=== PATIENT | female | born 1960 | race Caucasian/White ===

== ENCOUNTER 2024-11-09 06:34 | Day surgery (SDC) | payer BC, SELFPAY | END 2024-11-09 11:19 | disposition home or self-care (01) | LOC: GI 06:34 | PROVIDERS: ATTENDING PHYSICIAN Internal Medicine Gastroenterology | DX: K20.90 Esophagitis, unspecified without bleeding (principal); K31.7 Polyp of stomach and duodenum; R19.7 Diarrhea, unspecified | CPT/HCPCS: 43239; 88305; 88342 ==

== ENCOUNTER 2025-03-05 20:30 | Inpatient (IN) | payer BC, SELFPAY ==
[2025-03-05 14:03] VITALS: BP 117/68
[2025-03-05 14:30] LABS: Hematocrit 38.7 % (37.0-47.0); Hemoglobin 13.4 g/dL (12.0-16.0); Mean Corp Hgb Conc. 34.6 g/dL (33.0-37.0); Mean Corpuscular Volume 88.2 fL (81.0-99.0); Nucleated Red Blood Cells % 0 %; Platelet Count 140 10^3/uL (130-400); Red Cell Dist. Width 12.4 % (11.5-14.5)
[2025-03-05 14:36] LABS: ALT (SGPT) 36 U/L (0-35); AST (SGOT) 42 U/L (14-36); Albumin 4.1 g/dl (3.5-5.0); Alkaline Phosphatase 51 U/L (38-126); Blood Urea Nitrogen 7 mg/dl (7-17); Calcium 8.5 mg/dl (8.4-10.2); Carbon Dioxide 26 mmol/L (22-30); Chloride 100 mmol/L (98-107); Glucose 135 mg/dl (70-99); Lipase 74 U/L (23-300); Potassium 3.3 mmol/L (3.5-5.1); Sodium 132 mmol/L (135-145); Total Protein 6.4 g/dl (6.3-8.2); eGFR > 60.00
[2025-03-05 16:25] VITALS: BP 127/57; BMI 25.7
[2025-03-05] MEDS: ZOFRAN 4 MG IV (16:32)
[2025-03-05] MEDS: PROTONIX IV 40 MG IV (16:32)
[2025-03-05] MEDS: MORPHINE SULFATE 2 MG IV (16:33)
[2025-03-05] MEDS: NSS 1000 IV ×2 (16:33→21:55)
[2025-03-05 17:00] VITALS: BP 135/55
--- NOTE | 2025-03-05 17:09 | ED.GENMED ---
History of Present Illness
General
Chief Complaint: Abdominal Symptoms
Source: patient
Exam Limitations: none
Time Seen by Provider: 03/05/25 16:11
Nursing documentation reviewed up to this point in time: agreed with
History of Present Illness
History of Present Illness:
Patient diagnosed with influenza, via home test 2 days ago, presents ED secondary to worsening abdominal pain over the past 3 days along with 1 episode of nonbloody diarrhea as well as 1 episode of vomiting today. Patient reports decreased
appetite. Abdominal pain described as sharp, diffuse, without any alleviating or exacting factors. Patient's also tested positive for influenza. Denies recent travel. Patient's symptoms started with cough and congestion, as well as body
ache 5 days ago. Patient states that she had leftover Tamiflu at home, and took 1 dose yesterday, and is wondering whether or not Tamiflu may be contributing to her nausea and vomiting episode today
Review of Systems
Review of Systems
Allergies reviewed?: Yes
All Other Systems: ROS reviewed and negative except as documented in HPI and ROS
Constitutional: Reports no symptoms; Denies fever
EENT: Reports no symptoms
Respiratory: Reports cough; Denies trouble breathing
Cardiac: Reports no symptoms
ABD/GI: Reports abdominal pain, nausea, vomiting and diarrhea
Musculoskeletal: Reports no symptoms
Skin: Reports no symptoms
Neurological: Reports no symptoms
Phy Exam
Physical Exam
Physical Exam:
Physical Exam
General: mild painful distress, not acutely ill. afebrile
Head: nc/at. eomi
Neck: supple. normal range of motion
Heart: s1/s2 regular rate and rhythm
Lungs: no acute respiratory distress. clear bilaterally
Abdomen: normal bowel sounds. no distention. mild diffuse tenderness to palpation
Neuro: alert and oriented x 3. no focal neurological deficits
Skin: no rash
Psychiatric: well kept. interactive and cooperative
Extremities: no edema. no calf tenderness.
Course
Orders/Labs/Results
Orders:
Orders
03/05/25 14:10
Complete Blood Count/With Diff Urgent
Comprehensive Metabolic Panel Urgent
Lipase Urgent
03/05/25 16:20
0.9% Sodium Chloride 1000 ml [Nss] 1,000 ml IV BOLUS
Morphine Sulfate 2 mg IV NOW STA
Ondansetron Injectable [Zofran] 4 mg IV NOW STA
Pantoprazole [Protonix IV] 40 mg IV NOW STA
03/05/25 16:21
CT Abd/pelvis W Iv Cont Urgent
Comment:
Reason For Exam: LLQ pain
Morphine Sulfate 2 mg .ROUTE .STK-MED ONE
Ondansetron Injectable [Zofran] 4 mg .ROUTE .STK-MED ONE
Pantoprazole [Protonix IV] 40 mg .ROUTE .STK-MED ONE
03/05/25 17:08
Stool Culture Urgent
CHAPARRITA Source: Feces/Stool
Specimen Description:
03/05/25 17:36
Influenza A+B Rapid Molecular Urgent
CHAPARRITA Source: Nasal Swab
Specimen Description:
03/05/25 17:41
Ibuprofen [Motrin] 400 mg PO NOW STA
03/05/25 17:42
Ibuprofen [Motrin] 400 mg .ROUTE .STK-MED ONE
03/05/25 18:11
HYDROmorphone [Dilaudid] 0.5 mg IV NOW STA
Piperacillin/Tazo 3.375 Gram [Zosyn] 3.375 gram in 50 ml IV NOW
03/05/25 18:35
Admit/Transfer Patient As Directed
Co-Sign Provider:
Level of Care: Inpatient admission
Assign to:: Telemetry
Physician / Group: isha
Diagnosis: diverticulitis
Reason for Telemetry: Arrhythmia
Date to Stop Telemetry: 03/08/25
Time to Stop Telemetry: 11:00
Reason for Hospitalization: diverticulitis
influenza
Expected length of stay greater than two midnights?: Yes
ELOS- Estimated Length of Stay in days: 3
I certify the patient meets the requirements for IP care: Yes
PRN Pain Medication Management As Directed
May give lesser potent ordered pain med per pt: Yes
preference::
Protocol:: Medication orders for pain may be administered in a
manner that supports deferring to patient preference
when the pt is:
- Requesting an ordered lesser potent pain medication.
Least to most potent pain medications are defined
as: acetaminophen < NSAID < tramadol < opioids
(morphine, oxycodone, hydromorphone).
- Requesting a lesser dose of the same medication IF
ORDERED.
- Requesting a less intrusive route of administration
if both routes are prescribed by the provider (PO <
IV).
03/05/25 18:36
Code Status As Directed
Resuscitation Status: Full Code
03/05/25 19:00
0.9% Sodium Chloride 500 ml [Nss] 500 ml IV 100 mls/hr
03/05/25 19:02
EKG [Electrocardiogram (*1)] Stat
Reason for Study: QTc Monitoring
CR Chest - 2 Views Stat
Comment:
Reason For Exam: cough
03/05/25 19:45
Blood Culture Q30M
CHAPARRITA Source: Blood/Venous
Specimen Description:
03/05/25 20:45
0.9% Sodium Chloride 1000 ml [Nss] 1,000 ml IV 80 mls/hr
HYDROmorphone [Dilaudid] 0.5 mg IV Q4HPRN PRN
Ibuprofen [Motrin] 400 mg PO Q6HPRN PRN
Ondansetron Injectable [Zofran] 4 mg IV Q8HPRN PRN
Oseltamivir Phosphate [Tamiflu] 75 mg PO BID
Potassium Chloride 10% Elixir [KCl Elixir] 40 meq PO NOW STA
03/05/25 20:45
Consult Colorectal Surgery [ColoRectal Surgery Consult] Routine
Consulting Provider: Ceasar Price
Was physician already notified: Yes
Activity As Directed
Activity Level: As Tolerated
Pneumatic Compression Sleeves As Directed
Type: Knee high
Vital Signs As Directed
Frequency: Per unit guidelines
DX Deep Vein Thrombosis Video Routine
03/05/25 20:53
CLONAZepam [CLONAZepam ODT] 0.5 mg PO DAILYPRN PRN anxiety
03/05/25 22:00
Tizanidine [Zanaflex] 2 mg PO HS
cycloSPORINE [Restasis 0.05% Ophthalmic Emulsion] 1 drops BOTH EYES Q12H
03/05/25 23:07
Blood Culture Q30M
CHAPARRITA Source: Blood/Venous
Specimen Description:
03/06/25 00:00
Piperacillin/Tazo 3.375 Gram [Zosyn] 3.375 gram in 50 ml IV Q6H
03/06/25 Breakfast
NPO
Allow oral meds: Yes
Allow clear liquids: No
Complete Blood Count/No Diff IN AM
Comprehensive Metabolic Panel IN AM
03/06/25 08:00
Losartan [Cozaar] 25 mg PO DAILY
Olopatadine HCl 0.1% [Olopatadine 0.1% Ophthalmic Solution] See Dose Instructions OPHTH DAILY
Pantoprazole [Protonix IV] 40 mg IV DAILY
03/06/25 18:00
Rosuvastatin Calcium [Crestor] 20 mg PO QPM
03/07/25 06:00
Complete Blood Count/No Diff IN AM
Comprehensive Metabolic Panel IN AM
03/08/25 06:00
Complete Blood Count/No Diff IN AM
Comprehensive Metabolic Panel IN AM
03/08/25 11:00
DC Protocol for Telemetry ONCE
03/09/25 06:00
Complete Blood Count/No Diff IN AM
Comprehensive Metabolic Panel IN AM
Abnormal Lab Results
03/05/25
14:10
WBC 2.8 L 10^3/uL
(4.8-10.8)
Absolute Lymphs (auto) 0.3 L 10^3/uL
(1.2-3.4)
Neutrophils % 83.9 H %
(42.2-75.2)
Lymphocytes % 12.1 L %
(20.5-51.1)
Sodium 132 L mmol/L
(135-145)
Potassium 3.3 L mmol/L
(3.5-5.1)
Glucose 135 H mg/dl
(70-99)
AST 42 H U/L
(14-36)
ALT 36 H U/L
(0-35)
03/05/25 14:10
03/05/25 14:10
Vital Signs
Initial and Last Documented VS:
Initial Vital Signs
Temp Pulse Resp BP Pulse Ox
99.1 F 97 18 117/68 98
03/05/25 14:03 03/05/25 14:03 03/05/25 14:03 03/05/25 14:03 03/05/25 14:03
Last Documented Vital Signs
Temp Pulse Resp BP Pulse Ox
100.5 F H 103 14 112/59 94
03/05/25 22:45 03/05/25 22:45 03/05/25 22:45 03/05/25 22:45 03/05/25 22:45
MDM/Problems Addressed
MDM/Problems Addressed:
Influenza positive.
CT abdomen pelvis report reviewed and discussed with patient, as well as on-call colorectal surgery, Dr. Price.
Patient will be admitted for further evaluation and treatment, including IV antibiotics and pain control.
*Pulse Oximetry
SaO2: 98
Oxygen Mode of Delivery: Room air
Patient hypoxic: no
*Critical Care Note
Total Time (30-74mins, 75-104mins- exclusive of procedures): Not Applicable
ED Attending Note
-
Portions of this chart may have been created with voice recognition software.� Occasional wrong word or��sound alike� substitutions may have occurred due to the inherent limitations of voice recognition software.
Discharge Plan
Departure
Patient Disposition: Admit
Date of Disposition: 03/05/25
Time of Disposition: 18:15
Admit to: IMU
Presentation/result/management discussed w/ accepting MD/DO: Hospitalist
Discharge Problem:
Diverticulitis of colon with perforation
Interventions
Interventions:
*Risk Screen - Suicide Last Done: 03/05/25 22:03
*General Assessment Last Done: 03/05/25 16:25
*Neglect/Abuse Screening Last Done: 03/05/25 16:25
*ED COVID-19 Vaccine History Last Done: 03/05/25 22:03
*ED Influenza Vaccine History Last Done: 03/05/25 16:25
[facility] Fall Risk Assessment Tool Last Done: 03/05/25 16:25
*Nursing Disposition Last Done: 03/05/25 20:35
DC-[id number] Assessment Last Done: 03/05/25 16:25
[2025-03-05] MEDS: MOTRIN 400 MG PO ×2 (17:43→22:42)
--- NOTE | 2025-03-05 18:14 | HPS.HSE ---
Addendum entered and electronically signed by Sharath Fuller MD 03/05/25 19:12:
This is an addendum to H&P written by Jazmin Butt on 03/05/2025. �Patient seen and examined independently with RECEIVING AND PROCESSING SUPERVISOR.
64-year-old female past medical history of hyperlipidemia, hypertension, interstitial cystitis, dry eyes, anxiety, presenting with cough, congestion, body aches for 4 days. �Diagnosed with influenza 2 days ago by home test. �Started Tamiflu
yesterday.
For past 3 days with left lower quadrant abdominal pain. �Multiple episodes of soft loose stools, and single vomiting
Vital signs show temperature of 103, tachycardia.
Labs show leukopenia 2.8. �Potassium 3.3. �Mild transaminitis.
CT abdomen pelvis shows acute sigmoid diverticulitis with evidence of microperforation.
Patient with perforated acute sigmoid diverticulitis. �N.p.o., IV fluids, check blood cultures, Zosyn. �Colorectal surgery consulted.
Patient with influenza infection. �Tamiflu.
Original Note:
Family Physician
-
Family Physician: Angelita Mcconnell MD
Chief Complaint
-
fever
left lower quadrant pain
History of Present Illness
64 year old with PMH for HLD, HTn, interstitial cystitis presented to us with chills, cough,congestion since Saturday. patient complained of generalized body ache. she had headache and was dizzy. yesterday she tested positive for Flu and took one
Tamiflu. for past the days, she noticed left lower quadrant pain for past three day. she had multiple episodes of loose stool.She vomited once today. Estimates she had a temp of 103.1. Patient denied dysuria hematuria. Patient denied any chest
pain or short of breath.
CT with the impression of acute sigmoid diverticulitis with evidence of perforation.
Patient received fluids, Dilaudid, Zofran, Zosyn in ER. Admitting for further management
Medical History
Past Medical History
Past Medical History: Reports Other
Additional Past Medical History:
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
Past Surgical History: Reports Other
Additional Past Surgical History:
Cystoscopy, salpingectomy and right ovarian cystectomy, bilateral bunionectomy
Social History
Tobacco: Non-smoker
Alcohol: None
Drug: None
Personal:
Living: With Family
Family History
Family History: Not pertinent
Allergies / Home Medications
Allergies reflects when Allergies were last updated in [email or web address].
Home Medications with original date entered in [email or web address]
Allergy/Medication List:
Allergies
Allergy/AdvReac Type Severity Reaction Status Date / Time
Egg Derived Allergy Sneezing Verified 03/05/25 14:03
Home Medications
Calcium + D 1,200 mg PO DAILY 03/27/22
Premarin 0.5 % vaginal MOTH 03/27/22
acetaminophen 500 mg capsule 500 - 1,000 mg PO PRN PRN pain 03/27/22
cholecalciferol (vitamin D3) 125 mcg (5,000 unit) tablet (Vitamin D3) 125 mcg PO DAILY 03/27/22
clonazepam 0.25 mg disintegrating tablet 0.25 - 0.5 mg PO PRN PRN anxiety 03/27/22
cyclosporine 0.05 % eye drops in a dropperette (Restasis) 1 drp BOTH EYES Q12H 03/27/22
famotidine 10 mg tablet (Pepcid AC) 10 mg PO PRN PRN GERD 03/27/22
ibuprofen 200 mg capsule (Motrin IB) 200 - 400 mg PO PRN PRN pain 03/27/22
olopatadine 0.2 % eye drops 1 drp BOTH EYES DAILY 03/27/22
rosuvastatin 20 mg tablet (Crestor) 20 mg PO QPM 03/27/22
tizanidine 2 mg tablet 2 mg PO HS 03/27/22
zoledronic acid 5 mg/100 mL in mannitol 5 %-water intravenous piggybck (Reclast) 5 mg IV ONCE 03/27/22
Review of Systems
-
Constitutional: Reports Fever, Fatigue and Chills
EENT: Reports No Symptoms
Respiratory: Reports Cough
Cardiac: Reports No Symptoms
Abdomen/GI: Reports Abdominal Pain, Nausea, Vomiting and Diarrhea
: Reports No Symptoms
Musculoskeletal: Reports No Symptoms
Skin: Reports No Symptoms
Neurological: Reports No Symptoms
Endocrine: Reports No Symptoms
Hematologic/Lymphatic: Reports No Symptoms
Psych: Reports No Symptoms
Physical Exam
Vital Signs
Vital Signs
Temp Pulse Resp BP Pulse Ox
103.2 F H 115 16 135/55 96
03/05/25 17:30 03/05/25 17:30 03/05/25 17:00 03/05/25 17:00 03/05/25 17:33
Physical Exam
General: Well Developed, Well Nourished and No Apparent Distress
HEENT: NormoCephalic, Moist mucous membranes and Atraumatic
Respiratory: Clear
Cardiac: S1/S2 and Regular Rhythm; No Murmur or Rub
GI: Soft, Non Tender, Non Distended and Normal Bowel Sounds; No Organomegaly
Rectal: Deferred by Provider
Musculoskeletal: No Clubbing, No Cyanosis and No Edema
Skin: No Rash
Neuro: AO x 3 and Nonfocal/grossly intact
Psych: Calm
Laboratory Results
-
03/05/25 14:10
03/05/25 14:10
Laboratory Results
Total Bilirubin 0.6 mg/dl (0.2-1.3) 03/05/25 14:10
AST 42 U/L (14-36) H 03/05/25 14:10
ALT 36 U/L (0-35) H 03/05/25 14:10
Alkaline Phosphatase 51 U/L (38-126) 03/05/25 14:10
Lipase 74 U/L (23-300) 03/05/25 14:10
Data Reviewed
-
CT Scan: Report Reviewed by me
Lab Data: Labs Reviewed by me
Impression/Plan
-
#Influenza
-TamiFlu continued
-Motrin prn for fever and pain
-obtain chest x ray
#Sigmoid diverticulitis with microperforation
- Keep patient n.p.o.
- Fluids continued for hydration
- IV Zosyn
- Dilaudid as needed for pain
-zofran prn for n/v
- Colorectal consulted
-CT abdomen pelvis with acute sigmoid diverticulitis with evidence of perforation (small amount of free air). However, no focal collection or abscess identified at this time.9 mm common bile duct. Likely physiologic. Recommend correlation with liver
function tests.
#Hyponatremia /Hypokalemia secondary to vomiting and diarrhea
- Sodium 132
-K3.3
- Fluids continued, oral KCl
- BMP in the morning
#HLD
-Crestor and Zetia continued
#essential HTN
-losartan continued with hold parameter
#interstitial cystitis
-tizanidine continued
#DVT prophylaxis
-scd
#CODE status
-full code
--- NOTE | 2025-03-05 18:18 | EDRN ---
Pt OOB to BR at this time.
[2025-03-05 18:23] VITALS: BP 107/58
--- NOTE | 2025-03-05 18:23 | EDRN ---
Jazmin Butt NP in room w/ pt. Pt back from BR at this time. Pt told she is NPO at this time.
[2025-03-05] MEDS: DILAUDID 0.5 MG IV (18:38)
[2025-03-05] MEDS: ZOSYN 50 IV (18:39)
[2025-03-05 20:45] VITALS: BP 121/64; BMI 25.3
--- NOTE | 2025-03-05 20:45 | PTCARENOTE ---
Pt arrived to room 427-01. Pt ambulated from stretcher to bed. Pt AAOx3, VSS. Pt oriented to room, call alvarez placed within reach.
[2025-03-05] MEDS: RESTASIS 0.05% OPHTHALMIC EMULSION 1 DROPS BOTH EYES (21:55)
[2025-03-05] MEDS: ZANAFLEX 2 MG PO (21:55)
[2025-03-05] MEDS: TAMIFLU 75 MG PO (21:55)
[2025-03-05] MEDS: KCL ELIXIR 40 MEQ PO (22:41)
[2025-03-05 22:45] VITALS: BP 112/59
[2025-03-06] MEDS: ZOSYN 50 IV ×5 (00:35→23:42)
[2025-03-06] MEDS: DILAUDID 0.5 MG IV ×4 (02:16→22:18)
[2025-03-06 02:27] VITALS: BP 92/51
[2025-03-06 08:13] VITALS: BP 103/59
[2025-03-06 08:15] LABS: Hematocrit 32.9 % (37.0-47.0); Hemoglobin 11.2 g/dL (12.0-16.0); Mean Corp Hgb Conc. 34.0 g/dL (33.0-37.0); Mean Corpuscular Volume 88.4 fL (81.0-99.0); Platelet Count 120 10^3/uL (130-400); Red Cell Dist. Width 12.8 % (11.5-14.5)
[2025-03-06] MEDS: TAMIFLU 75 MG PO ×2 (08:32→19:55)
[2025-03-06] MEDS: NSS 1000 IV ×2 (08:32→23:44)
[2025-03-06] MEDS: COZAAR PO ×2 (08:32→10:28)
[2025-03-06 08:33] LABS: ALT (SGPT) 24 U/L (0-35); AST (SGOT) 28 U/L (14-36); Albumin 3.2 g/dl (3.5-5.0); Alkaline Phosphatase 38 U/L (38-126); Blood Urea Nitrogen 9 mg/dl (7-17); Calcium 7.9 mg/dl (8.4-10.2); Carbon Dioxide 23 mmol/L (22-30); Chloride 104 mmol/L (98-107); Estimated Creatinine Clearance 59 ml/min; Glucose 93 mg/dl (70-99); Potassium 3.5 mmol/L (3.5-5.1); Sodium 133 mmol/L (135-145); Total Protein 5.4 g/dl (6.3-8.2); eGFR > 60.00
[2025-03-06] MEDS: PROTONIX IV 40 MG IV (08:33)
[2025-03-06] MEDS: NSS (PRESERVATIVE FREE) 10 ML IV (08:33)
[2025-03-06] MEDS: OLOPATADINE 0.1% OPHTHALMIC SOLUTION 1 DROP OPHTH (08:33)
--- NOTE | 2025-03-06 09:54 | CON.CRS ---
Consultation
-
Date/Time Consultation Requested: 03/05/252044
Date/Time Consultation Performed: 03/06/25 0845
Requesting Provider: Daquan
Performing Provider: Katherine Price
Medical History
-
Chief Complaint: abdominal pain
History of Present Illness:
Ms Cotter is a 64 yo female with a h/o HTN, IC and prior lap salpingo-oophorectomy for benign mass who presents with persistent and worsening pelvic pain. Her was recently ill with the flu and she notes that she began having flu symptoms
(runny notes, cought) about 3-4 days ago. She tested positive at an outpatient facility and was started on Tamiflu (did receive flu vaccine this year). Around the onset of her flu symptoms, she also noted mild lower abdominal pain with intermittent
diarrhea. Abdominal pain continued to worsen even as her flu symptoms resolved causing her to present for evaluation. She was febrile to 103.2 yesterday and has has intermittent fevers since presentation. Significant lower abdominal tenderness is
present with less severe upper abdominal tenderness. She denies nausea or vomiting. She denies prior episodes of diverticulitis but does note that her last colonoscopy approximately 3 years ago demonstrated diverticular disease.
Past Medical History
Past Medical History: GERD, HTN, Hypercholesterolemia, Psychiatric (anxiety) and Other (IC)
Past Surgical History: Gynecological (lap left salpingo-oophorectomy (benign mass)), Orthopedic (Lumbar fusion, bunions) and Other (Colonoscopy approx 3 years ago, Endoscopy 2024 with bx of gastric polyps)
Social History
Tobacco: Non-Smoker
Alcohol: None
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
Family History
Family History: Reviewed & Not Pertinent
Allergies / Home Medications
Allergy/AdvReac Type Severity Reaction Status Date / Time
Egg Derived Allergy Sneezing Verified 03/05/25 14:03
�Medication �Instructions �Recorded �Confirmed �Type
calcium 500 mg (as 1 tab PO DAILY Supplement 03/27/22 03/05/25 History
carbonate)-vitamin D3 10 mcg (400
unit) tablet (Calcium 500 + D)
clonazepam 0.25 mg disintegrating 0.5 mg PO DAILYPRN PRN anxiety 03/27/22 03/05/25 History
tablet
conjugated estrogens 0.625 mg/gram 1 applic vaginal TUFR 03/27/22 03/05/25 History
vaginal cream (Premarin)
cyclosporine 0.05 % eye drops in a 1 drp BOTH EYES Q12H Eye Condition 03/27/22 03/05/25 History
dropperette (Restasis)
famotidine 10 mg tablet (Pepcid AC) 10 mg PO DAILYPRN PRN GERD 03/27/22 03/05/25 History
ibuprofen 200 mg capsule (Motrin 400 mg PO Q6HPRN PRN mild pain 03/27/22 03/05/25 History
IB)
olopatadine 0.2 % eye drops 1 drp BOTH EYES DAILY Eye Condition 03/27/22 03/05/25 History
rosuvastatin 20 mg tablet (Crestor) 20 mg PO QPM High Cholesterol 03/27/22 03/05/25 History
tizanidine 2 mg tablet 2 mg PO HS Muscle Spasms 03/27/22 03/05/25 History
dextromethorphan-guaifenesin 10 10 ml PO Q12H Cough 03/05/25 03/05/25 History
mg-100 mg/5 mL oral syrup
losartan 25 mg tablet 25 mg PO DAILY Blood Pressure 03/05/25 03/05/25 History
oseltamivir 75 mg capsule (Tamiflu) 75 mg PO BID Infection 03/05/25 03/05/25 History
Review of Systems
-
History Source: Patient
All other systems: Negative unless noted
A 10 point review of systems was completed, and was negative except as per HPI.
Physical Exam
Vital Signs
Temp 99.9 F 03/06/25 08:13
Pulse 98 03/06/25 08:13
Resp Rate 20 03/06/25 08:13
Blood pressure 103/59 03/06/25 08:13
SaO2 92 03/06/25 08:13
03/05/25 03/06/25 03/07/25
06:59 06:59 06:59
Actual Weight 58.74 kg
Body Mass Index (BMI) 25.3
Lab Results / Allergies
03/06/25 07:29
03/06/25 07:29
WBC 5.4 10^3/uL (4.8-10.8) 03/06/25 07:29
Hgb 11.2 g/dL (12.0-16.0) L 03/06/25 07:29
Hct 32.9 % (37.0-47.0) L 03/06/25 07:29
Plt Count 120 10^3/uL (130-400) L 03/06/25 07:29
Abs Immat Gran (auto) 0.0 10^3/uL (0-0.05) 03/05/25 14:10
Neutrophils % 83.9 % (42.2-75.2) H 03/05/25 14:10
Allergy/AdvReac Type Severity Reaction Status Date / Time
Egg Derived Allergy Sneezing Verified 03/05/25 14:03
Physical Exam
General: Well Developed and Well Nourished
HEENT: Normocephalic and Moist Mucous Membranes
Respiratory: Non Labored Respirations
GI: Soft, Non Distended and Tender (diffuse but worse to the lower abdomen)
Skin: Warm and Dry
Neuro: Awake, Alert and AO x 3
Psych: Calm
Data Reviewed
-
CT Scan: Image Personally Visualized and interpreted, Report Reviewed by me, Discussed with Physician, Discussed with Nurse and Discussed with Patient
Labs: Labs Reviewed by me, Discussed with Physician, Discussed with Nurse and Discussed with Patient
Old Records: Reviewed
Assessment / Plan
-
Ms Cotter is a 64 yo female with a h/o HTN, IC, and prior lap salpingo-oophorectomy for benign mass with recently flu A+ as OP on tamiflu who presents with persistent and worsening pelvic pain and fevers. CT imaging reviewed and consistent with
sigmoid diverticulitis with small amount of pneumoperitoneum consistent with small perforation. No collection/abscess present. Significantly tender on exam but otherwise stable. Fevers overnight, but none this am. BP soft low but stable, no
tachycardia. WBC low on presentation, now normalized. LFT's normal. Blood cx pending. She is up to date on her colonoscopy. Discussed operative vs nonoperative management with pt. Surgical management would likely entail diverting colostomy in the
emergency setting. As she remains stable, opting for nonoperative management to start.
Plan:
Will follow closely with bowel rest and IV abx with supportive measures
NPO except meds for bowel rest
C/W IV zosyn
Follow labs/exams
IVF as per primary team
Analgesics/Antipyretics
Hold antihypertensives
No surgery planned at this time, but if her condition were to worsen may need surgery this admission
[2025-03-06] MEDS: RESTASIS 0.05% OPHTHALMIC EMULSION 1 DROPS BOTH EYES ×2 (11:06→21:27)
[2025-03-06 11:49] VITALS: BP 114/67
--- NOTE | 2025-03-06 13:06 | W.PN.HOSP.TC ---
Today's Communication/Plan
-
Strict NPO.
Continue IV Zosyn.
IV fluid.
Pain and nausea control
Assessment / Plan
Assessment / Plan
Impression:
64-year-old female with history of hyperlipidemia, hypertension, and interstitial cystitis presented with chills, cough, congestion, generalized body aches, headache, and dizziness since Saturday. Tested positive for influenza 03/05 and started
Tamiflu. Reports left lower quadrant pain for 3 days, multiple episodes of loose stool, and one episode of vomiting day of admit. Estimated fever up to 103.1�F. Denies chest pain, shortness of breath, dysuria, or hematuria.
Imaging:
CT abdomen/pelvis shows acute sigmoid diverticulitis with evidence of microperforation (small free air), no abscess.
ED Management:
Received IV fluids, Zosyn, Dilaudid, and Zofran. Admitted for further management.
Patient admitted under hospitalist service, seen by colorectal surgery who recommended to continue n.p.o.
Continue antibiotic
Assessment/plan:
Sigmoid diverticulitis with microperforation
CT abdomen/pelvis shows acute sigmoid diverticulitis with evidence of perforation (small amount of free air). No focal collection or abscess identified. 9 mm common bile duct likely physiologic; recommend correlation with liver function tests (LFTs
including alk phos are normal)
Colorectal surgery consulted, keep patient NPO
Continue IV fluids for hydration
IV Zosyn
Dilaudid as needed for pain
Zofran as needed for nausea/vomiting
Colorectal surgery consulted
Influenza A
Continue Tamiflu
Motrin as needed for fever and pain
Obtain chest X-ray:
Pneumoperitoneum with air under the right diaphragm.
Mild bibasilar atelectasis.
Hyponatremia / Hypokalemia secondary to vomiting and diarrhea
Initial sodium: 132
Initial potassium: 3.3
Continue IV fluids, potassium repleted and improved
Repeat BMP in the morning
Hyperlipidemia
Continue Crestor and Zetia
Essential Hypertension
Continue losartan with hold parameters
Interstitial Cystitis
Continue tizanidine
CODE STATUS: Full code
DVT prophylaxis: SCDs
Diet: NPO
Disposition: Strict NPO.
Continue IV Zosyn.
IV fluid.
Pain and nausea control
Total time spent on today's encounter was 65 minutes which included time spent in counseling the patient/family regarding diagnosis and treatment plan as listed above, goals of care, and symptom management. Case was discussed with nursing staff,
specialists, and care coordinators/case management. All labs and imaging personally reviewed by me. Remainder the time spent in detailed review of previous records, lab data, imaging, and other medical provider documentation.
Anticipated Discharge: > 48 hours
Subjective/Interval History
-
Date of Service: March 06, 2025
Patient seen and examined at bedside, denies any chest pain or shortness of breath, still with diffuse abdominal pain, seen by surgery advised n.p.o.
Objective Data
-
Labs:
Laboratory Results
03/06/25
07:29
WBC 5.4
Hgb 11.2 L
Hct 32.9 L
Plt Count 120 L
Sodium 133 L
Potassium 3.5
Chloride 104
Carbon Dioxide 23
BUN 9
Creatinine 0.7
Glucose 93
Calcium 7.9 L
Total Bilirubin 0.7
AST 28
ALT 24
Alkaline Phosphatase 38
Vital Signs:
Vital Signs
Temp Pulse Resp BP Pulse Ox
98.0 F 111 18 114/67 90
03/06/25 11:49 03/06/25 11:49 03/06/25 11:49 03/06/25 11:49 03/06/25 11:49
Physical Exam
-
General: Well Developed, Well Nourished, No Apparent Distress and Comfortable
HEENT: Normocephalic, Atraumatic, Moist Mucous Membranes, No Ptosis, PERRLA and Nose Appears Normal
Respiratory: Rales, Rhonchi and Non Labored Respirations
Cardiac: Regular Rhythm and S1/S2
Breast: Deferred by me
GI: Soft and Tender
Genito-urinary: No Costovertebral Tender
Musculoskeletal: No Clubbing, No Cyanosis and No Edema
Skin: Warm
Neuro: Awake, Alert, Oriented, AO x 3 and No Motor Deficits
Psych: Calm
Data Reviewed
-
Diagnostic Radiology: Image personally visualized and interpreted and Report Reviewed by me
CT Scan: Image personally visualized and interpreted and Report Reviewed by me
Ultrasound: Image personally visualized and interpreted and Report Reviewed by me
MRI: Image personally visualized and interpreted and Report Reviewed by me
Medical Tests (Nuc Med, Echo etc): Image personally visualized and interpreted and Report Reviewed by me
Labs: Labs Reviewed by me
Old Records: Reviewed
--- NOTE | 2025-03-06 13:25 | CM ---
CM reviewed chart, patient seen bedside with , initial assessment completed.
Patient is a 64 year old with PMH for HLD, HTn, interstitial cystitis presented to us with chills, cough,congestion since Saturday.
Patient resides with her in a two level home, two steps to enter, bedroom on second floor.
Patient is independent with ADLs/IADLs, denies VN/SNF.
Pt reports having crutches, walker, and wheelchair in the home from previous surgery.
PCP Angelita Gonzalez, Pharmacy [facility], confirms prescription coverage.
Patient denies insecurities at home.
CM will continue to follow.
Plan; home with likely
[2025-03-06] MEDS: TORADOL 15 MG IV (14:27)
[2025-03-06] MEDS: TYLENOL 1000 MG PO (15:35)
[2025-03-06 15:53] VITALS: BP 123/69
[2025-03-06] MEDS: CRESTOR 20 MG PO (17:06)
[2025-03-06 19:38] VITALS: BP 112/71
[2025-03-06] MEDS: TUMS CHEWABLE TABLET 200 MG PO ×2 (20:32→22:33)
[2025-03-06] MEDS: ZETIA 10 MG PO (21:27)
[2025-03-06] MEDS: ZANAFLEX 2 MG PO (21:27)
[2025-03-06] MEDS: ZOFRAN 4 MG IV (22:33)
[2025-03-06 23:07] VITALS: BP 108/58
[2025-03-07] MEDS: DILAUDID 0.5 MG IV ×5 (03:19→22:17)
[2025-03-07 03:23] VITALS: BP 116/56
[2025-03-07] MEDS: ZOSYN 50 IV ×4 (05:56→23:44)
[2025-03-07 06:00] VITALS: BMI 26.1
[2025-03-07] MEDS: TYLENOL 1000 MG PO ×2 (06:37→19:45)
[2025-03-07 07:01] VITALS: BP 139/71
[2025-03-07] MEDS: TAMIFLU 75 MG PO ×2 (07:53→19:25)
[2025-03-07] MEDS: OLOPATADINE 0.1% OPHTHALMIC SOLUTION 1 DROP OPHTH (07:53)
[2025-03-07] MEDS: NSS (PRESERVATIVE FREE) 10 ML IV (07:55)
[2025-03-07] MEDS: PROTONIX IV 40 MG IV (07:55)
[2025-03-07 08:25] LABS: Hematocrit 32.5 % (37.0-47.0); Hemoglobin 11.1 g/dL (12.0-16.0); Mean Corp Hgb Conc. 34.2 g/dL (33.0-37.0); Mean Corpuscular Volume 86.2 fL (81.0-99.0); Platelet Count 149 10^3/uL (130-400); Red Cell Dist. Width 12.9 % (11.5-14.5)
[2025-03-07 08:37] LABS: ALT (SGPT) 22 U/L (0-35); AST (SGOT) 36 U/L (14-36); Albumin 3.1 g/dl (3.5-5.0); Alkaline Phosphatase 46 U/L (38-126); Blood Urea Nitrogen 13 mg/dl (7-17); Calcium 8.6 mg/dl (8.4-10.2); Carbon Dioxide 20 mmol/L (22-30); Chloride 103 mmol/L (98-107); Estimated Creatinine Clearance 59 ml/min; Glucose 87 mg/dl (70-99); Potassium 3.1 mmol/L (3.5-5.1); Sodium 133 mmol/L (135-145); Total Protein 5.4 g/dl (6.3-8.2); eGFR > 60.00
[2025-03-07] MEDS: KCL 260 MEQ IV (09:51)
[2025-03-07] MEDS: NSS 1000 IV ×2 (09:52→23:44)
[2025-03-07] MEDS: RESTASIS 0.05% OPHTHALMIC EMULSION 1 DROPS BOTH EYES ×2 (09:53→22:15)
--- NOTE | 2025-03-07 10:14 | W.PN.GS2 ---
Today's Communication / Plan
-
Trial of clears.
Serial abdominal exams.
CT scan tomorrow.
Assessment / Plan
-
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
flu positive.
Afebrile, tachycardic. Pain improving
Will continue nonoperative management for now, with antibiotics.
Will follow with serial abdominal exams.
Low threshold for operative exploration if she worsens clinically.
Patient is interested in a trial of diet, will start with clear liquids today.
Continue antibiotics
Plan for CT abdomen pelvis with p.o./iv contrast tomorrow
Time Spent
Total Time Spent with Patient (in minutes): 20
Subjective Data
-
Date of Service: March 07, 2025
Interval Events:
No acute events overnight. Slept well. Pain Controlled and improved. Denies Nausea/Vomiting, +bowel function. Hungry
Objective Data
-
Intake and Output
03/06/25 03/07/25 03/08/25
06:59 06:59 06:59
Other:
Number of approximated MODERATE 2 3
amounts of urine
Vital Signs
Temp Pulse Resp BP Pulse Ox
98.7 F 112 18 139/71 92
03/07/25 07:01 03/07/25 07:01 03/07/25 07:01 03/07/25 07:01 03/07/25 07:01
Lab Results
03/07/25 07:29
03/07/25 07:29
Calcium 8.6 mg/dl (8.4-10.2) 03/07/25 07:29
Total Bilirubin 1.1 mg/dl (0.2-1.3) 03/07/25:
AST 36 U/L (14-36) 03/07/25:
ALT 22 U/L (0-35) 03/07/25:
Alkaline Phosphatase 46 U/L (38-126) 03/07/25:
Total Protein 5.4 g/dl (6.3-8.2) L 03/07/25:
Albumin 3.1 g/dl (3.5-5.0) L 03/07/25:
Physical Exam
-
GENERAL/NEURO: Awake, Alert, no distress
CHEST: Unlabored breathing on RA
ABDOMEN: Soft, tender to palpation, worse in the left lower quadrant. Mildly distended.
Patient has a soria catheter: No
Patient has a central line: No
[2025-03-07 11:20] VITALS: BP 114/64
--- NOTE | 2025-03-07 12:13 | W.PN.HOSP.TC ---
Today's Communication/Plan
-
Pain control
Continue IV Zosyn.
IV fluid.
DuoNebs.
CT abdomen pelvis with IV and oral contrast in a.m.
Assessment / Plan
Assessment / Plan
Impression:
64-year-old female with history of hyperlipidemia, hypertension, and interstitial cystitis presented with chills, cough, congestion, generalized body aches, headache, and dizziness since Saturday. Tested positive for influenza 03/05 and started
Tamiflu. Reports left lower quadrant pain for 3 days, multiple episodes of loose stool, and one episode of vomiting day of admit. Estimated fever up to 103.1�F. Denies chest pain, shortness of breath, dysuria, or hematuria.
Imaging:
CT abdomen/pelvis shows acute sigmoid diverticulitis with evidence of microperforation (small free air), no abscess.
ED Management:
Received IV fluids, Zosyn, Dilaudid, and Zofran. Admitted for further management.
Patient admitted under hospitalist service, seen by colorectal surgery who recommended to continue n.p.o.
Continue antibiotic
Trial of clears, still with severe pain, repeat CT abdomen pelvis in am
Assessment/plan:
Sigmoid diverticulitis with microperforation
CT abdomen/pelvis shows acute sigmoid diverticulitis with evidence of perforation (small amount of free air). No focal collection or abscess identified. 9 mm common bile duct likely physiologic; recommend correlation with liver function tests (LFTs
including alk phos are normal)
Colorectal surgery consulted, keep patient NPO
Continue IV fluids for hydration
IV Zosyn
Dilaudid as needed for pain
Zofran as needed for nausea/vomiting
Colorectal surgery consulted
03/07
Trial of clears, still with severe pain, repeat CT abdomen pelvis in am
Acute hypoxic respiratory failure (nocturnal hypoxia)/ Influenza A
Continue Tamiflu
Motrin as needed for fever and pain
chest X-ray:
Pneumoperitoneum with air under the right diaphragm.
Mild bibasilar atelectasis.
03/07
Patient dropped oxygen level to 86-87% at night required 2 L of oxygen.
Ordered DuoNebs
Hyponatremia / Hypokalemia secondary to vomiting and diarrhea
Initial sodium: 132
Initial potassium: 3.3
Continue IV fluids, continue to replace potassium and monitor.
Repeat BMP in the morning
Hyperlipidemia
Continue Crestor and Zetia
Essential Hypertension
Continue losartan with hold parameters
Interstitial Cystitis
Continue tizanidine
CODE STATUS: Full code
DVT prophylaxis: SCDs
Diet: Started on clear
Disposition: Pain control
Continue IV Zosyn.
IV fluid.
DuoNebs.
CT abdomen pelvis with IV and oral contrast in a.m.
Total time spent on today's encounter was 65 minutes which included time spent in counseling the patient/family regarding diagnosis and treatment plan as listed above, goals of care, and symptom management. Case was discussed with nursing staff,
specialists, and care coordinators/case management. All labs and imaging personally reviewed by me. Remainder the time spent in detailed review of previous records, lab data, imaging, and other medical provider documentation.
Anticipated Discharge: > 48 hours
Subjective/Interval History
-
Date of Service: March 07, 2025
Patient was started on clear liquids but still complaining of severe abdominal pain, also overnight patient dropped oxygen level to 86/87% while sleeping, placed on 2 L of oxygen.
Ordered DuoNebs
Objective Data
-
Labs:
Laboratory Results
03/07/25
07:29
WBC 7.0
Hgb 11.1 L
Hct 32.5 L
Plt Count 149 D
Sodium 133 L
Potassium 3.1 L
Chloride 103
Carbon Dioxide 20 L
BUN 13
Creatinine 0.8
Glucose 87
Calcium 8.6
Total Bilirubin 1.1
AST 36
ALT 22
Alkaline Phosphatase 46
Vital Signs:
Vital Signs
Temp Pulse Resp BP Pulse Ox
98.8 F 102 20 114/64 92
03/07/25 11:20 03/07/25 11:20 03/07/25 11:20 03/07/25 11:20 03/07/25 11:20
Physical Exam
-
General: Well Developed, Well Nourished, No Apparent Distress and Comfortable
HEENT: Normocephalic, Atraumatic, Moist Mucous Membranes, No Ptosis, PERRLA and Nose Appears Normal
Respiratory: Wheezes, Rales, Rhonchi and Non Labored Respirations
Cardiac: Regular Rhythm and S1/S2
Breast: Deferred by me
GI: Soft and Tender
Genito-urinary: No Costovertebral Tender
Musculoskeletal: No Clubbing, No Cyanosis and No Edema
Skin: Warm
Neuro: Awake, Alert, Oriented, AO x 3 and No Motor Deficits
Psych: Calm
[2025-03-07 15:35] VITALS: BP 121/67
[2025-03-07] MEDS: DUONEB 3 ML INH (17:22)
[2025-03-07] MEDS: CRESTOR 20 MG PO (17:51)
[2025-03-07 19:10] VITALS: BP 133/72
[2025-03-07] MEDS: ZANAFLEX PO (22:04)
[2025-03-07] MEDS: ZETIA 10 MG PO (22:15)
[2025-03-07 22:44] VITALS: BP 122/67
[2025-03-08] VITALS (13 sets, daily range): BP systolic 0–140; BP diastolic 51–83
[2025-03-08] MEDS: DILAUDID 0.5 MG IV ×2 (02:57→08:44)
[2025-03-08] MEDS: OMNIPAQUE 50 ML PO (06:00)
[2025-03-08] MEDS: ZOSYN 50 IV ×3 (06:00→23:55)
[2025-03-08] MEDS: PROTONIX IV 40 MG IV (08:45)
[2025-03-08] MEDS: RESTASIS 0.05% OPHTHALMIC EMULSION 1 DROPS BOTH EYES ×2 (08:45→21:39)
[2025-03-08] MEDS: TAMIFLU 75 MG PO ×2 (08:45→19:55)
[2025-03-08] MEDS: OLOPATADINE 0.1% OPHTHALMIC SOLUTION 1 DROP OPHTH (08:46)
[2025-03-08] MEDS: NSS (PRESERVATIVE FREE) 10 ML IV (08:46)
[2025-03-08 08:48] LABS: Hematocrit 34.8 % (37.0-47.0); Hemoglobin 12.2 g/dL (12.0-16.0); Mean Corp Hgb Conc. 35.1 g/dL (33.0-37.0); Mean Corpuscular Volume 85.9 fL (81.0-99.0); Platelet Count 166 10^3/uL (130-400); Red Cell Dist. Width 13.0 % (11.5-14.5)
[2025-03-08 09:08] LABS: ALT (SGPT) 27 U/L (0-35); AST (SGOT) 54 U/L (14-36); Albumin 3.0 g/dl (3.5-5.0); Alkaline Phosphatase 59 U/L (38-126); Blood Urea Nitrogen 12 mg/dl (7-17); Calcium 8.2 mg/dl (8.4-10.2); Carbon Dioxide 17 mmol/L (22-30); Chloride 103 mmol/L (98-107); Estimated Creatinine Clearance 78 ml/min; Glucose 77 mg/dl (70-99); Potassium 2.9 mmol/L (3.5-5.1); Sodium 133 mmol/L (135-145); Total Protein 5.4 g/dl (6.3-8.2); eGFR > 60.00
[2025-03-08 09:42] LABS: INR 1.13; PT 14.6 Sec (11.4-14.6)
[2025-03-08 09:43] LABS: APTT 40.5 Sec (23.4-35.0)
--- NOTE | 2025-03-08 09:49 | WOUNDNOTE ---
[facility] RN NOTE: Patient visited for bilateral ostomy siting. Patient going to OR this morning for bowl perf. Dr. Rodriguez at bedside. Procedure for siting explained to patient. Patient could not move due to pain. Abdomen painful and distended. The rectus
abdominal muscle was identified and care was taken to avoid creases and folds. Patient was stoma sited on all 4 quadrants. Explained to patient that surgeon will make final determination of of stoma placement. Will follow up with patient after
surgery if stoma is placed.
--- NOTE | 2025-03-08 09:56 | W.PN.CRS1 ---
Today's Communication / Plan
-
OR for sigmoidectomy ?colostomy
Assessment/Plan
-
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
positive.
Tmax: 100.6
WBC 7.3.
HR:
-Given worsening pain, nausea, and CT scan on admission, will cancel CT A/P and take patient to the OR. She is in agreement.
-Plan is for a sigmoidectomy with probable colostomy creation.
-Wound RN for stoma marking.
-Continue IV antibiotics.
-Discussed with on phone, in agreement.
-Will be taking this AM.
Subjective Data
Subjective Data
Date of Service: March 08, 2025
Patient states she is in a lot of pain, specifically in her LLQ. She overall feels 'awful'. She is having loose stools and belching. She is nauseous and drinking the prep is making her more sick.
Objective Data
-
Vital Signs
Temp Pulse Resp BP Pulse Ox
98.3 F 103 20 140/79 94
03/08/25 08:12 03/08/25 08:12 03/08/25 08:12 03/08/25 08:12 03/08/25 08:12
Intake & Output
03/07/25 03/08/25 03/09/25
06:59 06:59 06:59
Intake Total 960 / 960
Balance 960 / 960
Intake:
IV fluids (Total) 960 / 960
Other:
Number of approximated MODERATE 3 2
amounts of urine
Lab Results
03/08/25 08:13
03/08/25 08:13
Physical Exam
-
General: No Acute Distress and AOx3
Abdomen: Soft, Distended (mild) and Tender (LLQ- moderate to severe pain)
Skin: Warm and Dry
[2025-03-08] MEDS: HEPARIN 5000 UNITS SC (09:58)
--- NOTE | 2025-03-08 10:37 | W.PN.HOSP.TC ---
Today's Communication/Plan
-
see plan
Assessment / Plan
Assessment / Plan
Impression:
64-year-old female with history of hyperlipidemia, hypertension, and interstitial cystitis presented with chills, cough, congestion, generalized body aches, headache, and dizziness since Saturday. Tested positive for influenza 03/05 and started
Tamiflu. Reports left lower quadrant pain for 3 days, multiple episodes of loose stool, and one episode of vomiting day of admit. Estimated fever up to 103.1�F. Denies chest pain, shortness of breath, dysuria, or hematuria.
Imaging:
CT abdomen/pelvis shows acute sigmoid diverticulitis with evidence of microperforation (small free air), no abscess.
Assessment/plan:
Sigmoid diverticulitis with microperforation
CT abdomen/pelvis shows acute sigmoid diverticulitis with evidence of perforation (small amount of free air). No focal collection or abscess identified. 9 mm common bile duct likely physiologic; recommend correlation with liver function tests (LFTs
including alk phos are normal)
IV Zosyn, IVF
s/p OR today; 03/08: Procedure Performed: Batsheva's procedure (sigmoidectomy with colostomy)
follow up culture results
NPO, NGT
Acute hypoxic respiratory failure (nocturnal hypoxia)/ Influenza A
Continue Tamiflu
Motrin as needed for fever and pain
Hyponatremia / Hypokalemia secondary to vomiting and diarrhea
Hypokalemia
-IV K, add on Mag
-K can be given during OR
-repeat K this evening, awaiting Mag
Hyperlipidemia
Continue Crestor and Zetia
Essential Hypertension
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
Interstitial Cystitis
Continue tizanidine
CODE STATUS: Full code
DVT prophylaxis: SCDs
Total time spent on today's encounter was 65 minutes which included time spent in counseling the patient/family regarding diagnosis and treatment plan as listed above, goals of care, and symptom management. Case was discussed with nursing staff,
specialists, and care coordinators/case management. All labs and imaging personally reviewed by me. Remainder the time spent in detailed review of previous records, lab data, imaging, and other medical provider documentation.
Anticipated Discharge: > 48 hours
Subjective/Interval History
-
Date of Service: March 08, 2025
patient seen post-op
she is sedated post anesthesia
Objective Data
-
Labs:
Laboratory Results
03/08/25 03/08/25
08:13 09:23
WBC 7.8
Hgb 12.2
Hct 34.8 L
Plt Count 166
PT 14.6
INR 1.13
APTT 40.5 H
Sodium 133 L
Potassium 2.9 L
Chloride 103
Carbon Dioxide 17 L
BUN 12
Creatinine 0.6
Glucose 77
Calcium 8.2 L
Total Bilirubin 0.7
AST 54 H
ALT 27
Alkaline Phosphatase 59
Vital Signs:
Vital Signs
Temp Pulse Resp BP Pulse Ox
98.3 F 103 20 140/79 94
03/08/25 08:12 03/08/25 08:12 03/08/25 08:12 03/08/25 08:12 03/08/25 08:12
I&O
03/07/25 03/08/25 03/09/25
06:59 06:59 06:59
Intake Total 960 / 960
Balance 960 / 960
Review of Systems
-
History Source: Patient
All other systems: Reviewed and negative
Physical Exam
-
General: No Apparent Distress
HEENT: PERRLA and Other (NGT)
Respiratory: Negative Wheezes
Cardiac: Regular Rhythm and S1/S2
GI: Other (surgical incision site c/d/i; colostomy bag; LUCIANO draine)
Musculoskeletal: No Edema
Skin: Warm and Dry; Negative Rash
Neuro: Sedated
Psych: Calm
Data Reviewed
-
Diagnostic Radiology: Report Reviewed by me
Labs: Labs Reviewed by me
[2025-03-08 11:07] LABS: C-Reactive Protein > 270.00 mg/L (0.0-10.00)
[2025-03-08] MEDS: ZOSYN IV (11:36)
--- NOTE | 2025-03-08 13:44 | W.IMMPOSTOP ---
Addendum entered and electronically signed by Basil Rodriguez MD 03/08/25 14:43:
Patient's , Kian (in waiting area), and daughter (on phone) updated.
Original Note:
Surgical Immed Post Op Note
-
Primary Surgeon: Susan Rodriguez MD
Assisting Surgeon: Anahi Price MD; JONATHON Snow
Pre-op Diagnosis: perforated sigmoid diverticulitis
Post-op Diagnosis: same
Procedure Performed: Batsheva's procedure (sigmoidectomy with colostomy)
Anesthesia Type: general plus local
Specimen / Cultures: 1) abdominal fluid cultures 2) sigmoid colon
Estimated Blood Loss: 30 cc
Complications: no immediate
Operative Findings: perforated mid sigmoid diverticulitis with mucopurulent contamination (Hinchey class 3) with some associated exudative adhesions
#19 Reggie drain in pelvis.
NGT with tip in stomach (confirmed).
Reynoso in bladder.
Will send to med surg.
--- NOTE | 2025-03-08 15:23 | CM ---
Chart reviewed. OR today for sigmoidectomy colostomy
CM will cont to follow for d/c needs
Plan: Home, no needs at this time
[2025-03-08] MEDS: NSS IV ×2 (16:18→22:58)
[2025-03-08] MEDS: NORMOSOL-R/PLASMALYTE-A 1000 IV (16:19)
[2025-03-08] MEDS: CRESTOR 20 MG PO (17:13)
[2025-03-08] MEDS: OFIRMEV 100 IV (19:53)
[2025-03-08] MEDS: TORADOL 10 MG IV (19:55)
[2025-03-08 20:02] LABS: Potassium 3.4 mmol/L (3.5-5.1)
[2025-03-08 20:05] LABS: Magnesium 2.8 mg/dl (1.6-2.3)
[2025-03-08] MEDS: KCL 270 MEQ IV (21:38)
[2025-03-08] MEDS: ZANAFLEX 2 MG PO (21:39)
[2025-03-08] MEDS: ZETIA 10 MG PO (21:39)
[2025-03-09] VITALS (7 sets, daily range): BP systolic 119–140; BP diastolic 60–82; PULSE 90; O2SAT 95; BMI 26.1
[2025-03-09] MEDS: NORMOSOL-R/PLASMALYTE-A 1000 IV (00:03)
[2025-03-09] MEDS: ANESTHETIC LOZENGE 1 LOZENGE PO (01:21)
[2025-03-09] MEDS: OFIRMEV 100 IV (01:22)
[2025-03-09] MEDS: TORADOL 10 MG IV ×4 (01:30→20:05)
[2025-03-09] MEDS: ZOSYN 50 IV ×4 (05:07→23:52)
[2025-03-09] MEDS: DILAUDID 0.25 MG IV (05:32)
--- NOTE | 2025-03-09 07:58 | PTCARENOTE ---
patient's operative and drain site assessed during bedside shift report. upon assessment, patient's midline abdominal incision and LUCIANO drain oozing sanguineous drainage . Dr Michael lugo texted to come and evaluate patient.
[2025-03-09 08:44] LABS: ALT (SGPT) 27 U/L (0-35); AST (SGOT) 45 U/L (14-36); Albumin 2.6 g/dl (3.5-5.0); Alkaline Phosphatase 54 U/L (38-126); Blood Urea Nitrogen 13 mg/dl (7-17); Calcium 7.1 mg/dl (8.4-10.2); Carbon Dioxide 14 mmol/L (22-30); Chloride 110 mmol/L (98-107); Estimated Creatinine Clearance 67 ml/min; Glucose 100 mg/dl (70-99); Magnesium 3.0 mg/dl (1.6-2.3); Potassium 3.6 mmol/L (3.5-5.1); Sodium 136 mmol/L (135-145); Total Protein 4.8 g/dl (6.3-8.2); eGFR > 60.00
[2025-03-09] MEDS: PROTONIX IV 40 MG IV (09:20)
[2025-03-09] MEDS: NSS (PRESERVATIVE FREE) 10 ML IV (09:20)
[2025-03-09] MEDS: TAMIFLU 75 MG PO ×2 (09:21→20:07)
[2025-03-09] MEDS: OLOPATADINE 0.1% OPHTHALMIC SOLUTION 1 DROP OPHTH (09:22)
[2025-03-09] MEDS: KCL 1010 MEQ IV ×2 (09:24→22:49)
[2025-03-09 09:26] LABS: Hematocrit 31.5 % (37.0-47.0); Hemoglobin 10.9 g/dL (12.0-16.0); Mean Corp Hgb Conc. 34.6 g/dL (33.0-37.0); Mean Corpuscular Volume 86.5 fL (81.0-99.0); Nucleated Red Blood Cells % 0 %; Platelet Count 253 10^3/uL (130-400); Red Cell Dist. Width 13.3 % (11.5-14.5)
[2025-03-09] MEDS: DILAUDID 0.5 MG IV ×3 (09:31→20:56)
[2025-03-09] MEDS: OFIRMEV IV (09:41)
--- NOTE | 2025-03-09 09:57 | W.PN.CRS1 ---
Today's Communication / Plan
-
maintain ngt
lovenox
OOB with PT/OT
increase dilaudid
continue IV abx
Assessment/Plan
-
POD#1 Batsheva's procedure (sigmoidectomy with colostomy)
vitals: normal
WBC: 12.1 (7.8). Hgb 10.9 (12.2)
-Maintain NGT. Fowler added for comfort.
-NPO with ice chips.
-OOB with PT/OT
-Maintain LUCIANO drain until discharge
-Continue IV antibiotics
-Lovenox for DVT prophylaxis. TEDS/SCDS in place.
-Maintain soria today.
-OR cultures pending
-Wound RN for stoma teaching. Okay to remove midline incision and replace with 4x4s and tape during first change.
-Appreciate hospitalist
-Pain control: Tylenol/Toradol standing, Dilaudid PRN (increased to q3PRN from q4PRN)
-OR pathology pending
Subjective Data
Procedure
03/08/2025- Batsheva's procedure (sigmoidectomy with colostomy)
Subjective Data
Date of Service: March 09, 2025
Patient states she is in some pain. The NGT is bothering her. Denies nausea or vomiting. Her mouth is very dry. No bowel function yet.
Objective Data
-
Vital Signs
Temp Pulse Resp BP Pulse Ox
98.2 F 85 16 120/76 96
03/09/25 07:27 03/09/25 07:27 03/09/25 07:27 03/09/25 07:27 03/09/25 07:27
Intake & Output
03/08/25 03/09/25 03/10/25
06:59 06:59 06:59
Intake Total 960 / 960 2380 / 2380
Output Total 1944
Balance 960 / 960 435 / 435
Intake:
Oral fluids 480 / 480
IV fluids (Total) 960 / 960 1600 / 1600
normosol 500 / 500
IV piggybacks 300 / 300
Amount instilled into GI Tube ( 0 / 0
Total)
Gastrostomy 0 / 0
Output:
Drain Output (Total) 220 / 220
Right Lower Abdomen Blair- 220 / 220
Baker
Gastrointestinal tube output ( 700 / 700
Total)
[place] Sump 700 / 700
Urine, Soria 1025 / 1025
Other:
Number of approximated MODERATE 2 2
amounts of urine
Lab Results
03/09/25 08:07
03/09/25 08:07
Physical Exam
-
General: No Acute Distress and AOx3
Abdomen: Soft, Non Distended and Tender (mild around incision)
Wound: Dressing in Place (some strikethrough noted) and Other (LUCIANO serous)
[2025-03-09] MEDS: RESTASIS 0.05% OPHTHALMIC EMULSION 1 DROPS BOTH EYES ×2 (12:50→22:28)
[2025-03-09] MEDS: CHLORASEPTIC/SORE THROAT SPRAY 1 SPRAY PO (12:55)
--- NOTE | 2025-03-09 13:09 | W.PN.HOSP.TC ---
Today's Communication/Plan
-
see plan
Assessment / Plan
Assessment / Plan
Impression:
64-year-old female with history of hyperlipidemia, hypertension, and interstitial cystitis presented with chills, cough, congestion, generalized body aches, headache, and dizziness since Saturday. Tested positive for influenza 03/05 and started
Tamiflu. Reports left lower quadrant pain for 3 days, multiple episodes of loose stool, and one episode of vomiting day of admit. Estimated fever up to 103.1�F. Denies chest pain, shortness of breath, dysuria, or hematuria.
Imaging:
CT abdomen/pelvis shows acute sigmoid diverticulitis with evidence of microperforation (small free air), no abscess.
Assessment/plan:
Sigmoid diverticulitis with microperforation
CT abdomen/pelvis shows acute sigmoid diverticulitis with evidence of perforation (small amount of free air). No focal collection or abscess identified. 9 mm common bile duct likely physiologic; recommend correlation with liver function tests (LFTs
including alk phos are normal)
IV Zosyn
s/p OR 03/08: Procedure Performed: Batsheva's procedure (sigmoidectomy with colostomy)
follow up culture results - gram neg bacilli
NPO, NGT
IVF changed to D5LR + 20mEq k
drainage from LUCIANO drain
ice chips OK for comfort
Acute hypoxic respiratory failure (nocturnal hypoxia)/ Influenza A
CONTINUE Tamiflu through 03/10
Hypokalemia
-repleted, add K to fluids
Hyperlipidemia
Hold Crestor and Zetia
Essential Hypertension
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
Interstitial Cystitis
Continue tizanidine
CODE STATUS: Full code
DVT prophylaxis: Lovenox
Total time spent on today's encounter was 65 minutes which included time spent in counseling the patient/family regarding diagnosis and treatment plan as listed above, goals of care, and symptom management. Case was discussed with nursing staff,
specialists, and care coordinators/case management. All labs and imaging personally reviewed by me. Remainder the time spent in detailed review of previous records, lab data, imaging, and other medical provider documentation.
Anticipated Discharge: > 48 hours
Subjective/Interval History
-
Date of Service: March 09, 2025
patient has throat discomfort from NGT
she also has some abdomianl discomfort at incision sites
Objective Data
-
Labs:
Laboratory Results
03/09/25
08:07
WBC 12.1 H
Hgb 10.9 L
Hct 31.5 L
Plt Count 253 D
Sodium 136
Potassium 3.6
Chloride 110 H
Carbon Dioxide 14 L*
BUN 13
Creatinine 0.7
Glucose 100 H
Calcium 7.1 L
Total Bilirubin 0.5
AST 45 H
ALT 27
Alkaline Phosphatase 54
Vital Signs:
Vital Signs
Temp Pulse Resp BP Pulse Ox
97.6 F 83 16 140/79 96
03/09/25 11:14 03/09/25 11:14 03/09/25 11:14 03/09/25 11:14 03/09/25 11:14
I&O
03/08/25 03/09/25 03/10/25
06:59 06:59 06:59
Intake Total 960 / 960 2380 / 2380
Output Total 1944 400 / 400
Balance 960 / 960 435 / 435 -400 / -400
Review of Systems
-
History Source: Patient
All other systems: Reviewed and negative
Physical Exam
-
General: No Apparent Distress
HEENT: PERRLA and Other (NGT)
Respiratory: Negative Wheezes
Cardiac: Regular Rhythm and S1/S2
GI: Other (surgical incision site c/d/i; colostomy bag; LUCIANO draine)
Musculoskeletal: No Edema
Skin: Warm and Dry; Negative Rash
Neuro: Sedated
Psych: Calm
[2025-03-09] MEDS: LOVENOX 40 MG SC (17:17)
[2025-03-09] MEDS: ZANAFLEX 2 MG PO (22:28)
[2025-03-10] MEDS: TORADOL 10 MG IV ×4 (02:59→20:27)
[2025-03-10] MEDS: ZOSYN 50 IV ×2 (05:31→11:46)
[2025-03-10] MEDS: DILAUDID 0.5 MG IV ×2 (06:11→21:19)
[2025-03-10 07:00] VITALS: BP 126/75
[2025-03-10] MEDS: NSS (PRESERVATIVE FREE) 10 ML IV (07:43)
[2025-03-10] MEDS: PROTONIX IV 40 MG IV (07:43)
[2025-03-10] MEDS: OLOPATADINE 0.1% OPHTHALMIC SOLUTION 1 DROP OPHTH (07:45)
[2025-03-10] MEDS: TAMIFLU 75 MG PO (07:45)
[2025-03-10 07:54] LABS: Hematocrit 26.4 % (37.0-47.0); Hemoglobin 9.0 g/dL (12.0-16.0); Mean Corp Hgb Conc. 34.1 g/dL (33.0-37.0); Mean Corpuscular Volume 86.8 fL (81.0-99.0); Nucleated Red Blood Cells % 0 %; Platelet Count 295 10^3/uL (130-400); Red Cell Dist. Width 13.4 % (11.5-14.5)
[2025-03-10 09:00] LABS: Blood Urea Nitrogen 15 mg/dl (7-17); Calcium 7.3 mg/dl (8.4-10.2); Carbon Dioxide 24 mmol/L (22-30); Chloride 107 mmol/L (98-107); Estimated Creatinine Clearance 78 ml/min; Glucose 124 mg/dl (70-99); Potassium 3.4 mmol/L (3.5-5.1); Sodium 134 mmol/L (135-145); eGFR > 60.00
[2025-03-10] MEDS: RESTASIS 0.05% OPHTHALMIC EMULSION 1 DROPS BOTH EYES ×2 (09:24→22:49)
--- NOTE | 2025-03-10 09:54 | W.PN.CRS1 ---
Today's Communication / Plan
-
ngt clamping trial
clears if ngt removed
hold lovenox today
continue zosyn
Assessment/Plan
-
POD#2 Batsheva's procedure (sigmoidectomy with colostomy)
vitals: normal
WBC: 8.7 (12.1, 7.8). Hgb 9.0 (10.9, 12.2)
-NGT clamping trial. If removed, start on clears.
-OOB with PT/OT
-Maintain VALENTE drain until discharge
-Continue IV antibiotics
-Lovenox to be held due to anemia. Likely due to some blood loss anemia mixed with dilution. TEDS/SCDS in place for DVT prophylaxis.
-Await void post soria removal.
-OR cultures pending
-Wound RN for stoma teaching. Okay to remove midline incision and replace with 4x4s and tape during first change.
-Appreciate hospitalist
-Pain control: Tylenol/Toradol standing, Dilaudid PRN (increased to q3PRN from q4PRN)
-OR pathology pending
Subjective Data
Procedure
03/08/2025- Batsheva's procedure (sigmoidectomy with colostomy)
Subjective Data
Date of Service: March 10, 2025
Patient states the NGT is still bothering her. Denies nausea or vomiting. She has some heartburn. Has flatus in her bag. Her main complaint is that her bandages keep oozing.
Objective Data
-
Vital Signs
Temp Pulse Resp BP Pulse Ox
97.4 F 82 18 126/75 100
03/10/25 07:00 03/10/25 07:00 03/10/25 07:00 03/10/25 07:00 03/10/25 07:00
Intake & Output
03/09/25 03/10/25 03/11/25
06:59 06:59 06:59
Intake Total 2380 / 2380 1060 / 1060
Output Total 1945 / 1945 1605 / 1605
Balance 435 / 435 -545 / -545
Intake:
Oral fluids 480 / 480
IV fluids (Total) 1600 / 1600 960 / 960
normosol 500 / 500
IV piggybacks 300 / 300 100 / 100
Amount instilled into GI Tube ( 0 / 0
Total)
Gastrostomy 0 / 0
Output:
Liquid stool amount 50 / 50
Colostomy 50 / 50
Drain Output (Total)
Right Lower Abdomen Blair-
Baker
Gastrointestinal tube output ( 700 / 700 450 / 450
Total)
[place] Sump 700 / 700 450 / 450
Urine, [place] 1025 / 1025 900 / 900
Other:
Number of approximated MODERATE 2
amounts of urine
Lab Results
03/10/25 07:40
03/10/25 07:40
Physical Exam
-
General: No Acute Distress and AOx3
Abdomen: Soft, Non Distended, Non Tender and Other (Valente drain serosanginous. colostomy warm and pink with some thin brown liquid and flatus. )
Skin: Warm and Dry
Incision: Other (midline incision with clots and beny in place. half of dressing replaced. no active bleeding. )
--- NOTE | 2025-03-10 10:45 | WOUNDNOTE ---
[facility] RN note: Christina Bradford requested this screenplay writer to change rest of post top incisional dressing (leave beny in distal incision) and ostomy appliance. Colorectal service stated they had to remove clotted blood from the distal section of incision.
There is a little trickle of sanguinous drainage from distal incision/wick. Removed dressing and colostomy appliance. Upper incision approximated with marlys intact. Dry gauze pads applied to midline incision with ABD pad on top. Stoma pale pink.
Peristomal skin slightly bruised and intact. Stoma with small amount of semi thick liquid brown stool in pouch. Instructed patient how to open and close pouch, cutting wafer and snapping on pouch and application of Castillo seal. Colostomy teaching
folder and ostomy supplies left in room ([place] wafer # [id number], Castillo seals and [place] pouch #[id number]). Patient gave this screenplay writer verbal permission to order a [place] ostomy secure starter kit and she stated her can be contacted for
future ostomy teaching. Next appliance change planned either Saturday or Saturday.
[2025-03-10] MEDS: KCL 1010 MEQ IV (11:20)
[2025-03-10] MEDS: ROBITUSSIN DM 10 ML PO ×2 (13:17→20:27)
--- NOTE | 2025-03-10 13:47 | WOUNDNOTE ---
[facility] RN note: Ordered a [employer] secure ostomy starter kit from [employer] secure starter kit web site.
--- NOTE | 2025-03-10 14:04 | W.PN.HOSP.TC ---
Today's Communication/Plan
-
Clamp NJ tube
may start CLD
Assessment / Plan
Assessment / Plan
Impression:
64-year-old female with history of hyperlipidemia, hypertension, and interstitial cystitis presented with chills, cough, congestion, generalized body aches, headache, and dizziness since Saturday. Tested positive for influenza 03/05 and started
Tamiflu. Reports left lower quadrant pain for 3 days, multiple episodes of loose stool, and one episode of vomiting day of admit. Estimated fever up to 103.1�F. Denies chest pain, shortness of breath, dysuria, or hematuria.
Imaging:
CT abdomen/pelvis shows acute sigmoid diverticulitis with evidence of microperforation (small free air), no abscess.
Patient status post Pickett's procedure
This post NG tube
Assessment/plan:
Sigmoid diverticulitis with microperforation s/p Batsheva's procedure
CT abdomen/pelvis shows acute sigmoid diverticulitis with evidence of perforation (small amount of free air). No focal collection or abscess identified. 9 mm common bile duct likely physiologic; recommend correlation with liver function tests (LFTs
including alk phos are normal)
IV Zosyn
s/p OR 03/08: Procedure Performed: Batsheva's procedure (sigmoidectomy with colostomy)
follow up culture results - gram neg bacilli
NPO, NGT
IVF changed to D5LR + 20mEq k
drainage from LUCIANO drain
ice chips OK for comfort
03/10
NG tube clamped
May remove and start clear liquid
Pain control
Acute hypoxic respiratory failure (nocturnal hypoxia)/ Influenza A
CONTINUE Tamiflu through 03/10
Hypokalemia
-repleted, add K to fluids
Hyperlipidemia
Hold Crestor and Zetia
Essential Hypertension
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
Interstitial Cystitis
Continue tizanidine
CODE STATUS: Full code
DVT prophylaxis: Lovenox
Total time spent on today's encounter was 65 minutes which included time spent in counseling the patient/family regarding diagnosis and treatment plan as listed above, goals of care, and symptom management. Case was discussed with nursing staff,
specialists, and care coordinators/case management. All labs and imaging personally reviewed by me. Remainder the time spent in detailed review of previous records, lab data, imaging, and other medical provider documentation.
Anticipated Discharge: > 48 hours
Subjective/Interval History
-
Date of Service: March 10, 2025
Patient seen and examined at bedside, NG tube clamped, denies any chest pain, coughing, ordered Robitussin DM.
Objective Data
-
Labs:
Laboratory Results
03/10/25
07:40
WBC 8.7
Hgb 9.0 L
Hct 26.4 L
Plt Count 295
Sodium 134 L
Potassium 3.4 L
Chloride 107
Carbon Dioxide 24
BUN 15
Creatinine 0.6
Glucose 124 H
Calcium 7.3 L
Vital Signs:
Vital Signs
Temp Pulse Resp BP Pulse Ox
97.4 F 82 18 126/75 100
03/10/25 07:00 03/10/25 07:00 03/10/25 07:00 03/10/25 07:00 03/10/25 07:00
I&O
03/09/25 03/10/25 03/11/25
06:59 06:59 06:59
Intake Total 2380 / 2380 1060 / 1060
Output Total 1945 / 1945 1605 / 1605
Balance 435 / 435 -545 / -545
Physical Exam
-
General: Well Developed, Well Nourished, No Apparent Distress and Comfortable
HEENT: Normocephalic, Atraumatic, Moist Mucous Membranes, No Ptosis, PERRLA and Nose Appears Normal
Respiratory: Rales and Non Labored Respirations
Cardiac: Regular Rhythm and S1/S2
GI: Tender, Ostomy and Other (LUCIANO drain, marlys in place)
Genito-urinary: No Costovertebral Tender
Musculoskeletal: No Clubbing, No Cyanosis and No Edema
Skin: Warm
Neuro: Awake, Alert, Oriented, AO x 3 and No Motor Deficits
Psych: Calm
--- NOTE | 2025-03-10 14:23 | CM ---
Chart reviewed. POD#2 Batsheva's procedure (sigmoidectomy with colostomy)
NGT
Therapy recommending home PT at d/c. Will discuss w/ patient prior to d/c
ADC > 48 hours
Plan: Home w/ home health
--- NOTE | 2025-03-10 14:51 | PTCARENOTE ---
Pt NG tube clamped at 0945. No c/o N/V or distended abdomen. After 4hrs residual checked and pt put out 150 ml. Hospitalist and colorectal sx made aware, NG tube removed. Pt on CLD.
[2025-03-10 15:00] VITALS: BP 120/64
[2025-03-10 16:41] LABS: Hematocrit 26.8 % (37.0-47.0); Hemoglobin 9.3 g/dL (12.0-16.0); Mean Corp Hgb Conc. 34.7 g/dL (33.0-37.0); Mean Corpuscular Volume 84.3 fL (81.0-99.0); Platelet Count 321 10^3/uL (130-400); Red Cell Dist. Width 13.4 % (11.5-14.5)
[2025-03-10] MEDS: DILAUDID 0.25 MG IV (16:57)
[2025-03-10] MEDS: ZOSYN 100 IV ×2 (16:58→23:27)
[2025-03-10 17:02] LABS: Blood Urea Nitrogen 12 mg/dl (7-17); Calcium 7.4 mg/dl (8.4-10.2); Carbon Dioxide 25 mmol/L (22-30); Chloride 105 mmol/L (98-107); Estimated Creatinine Clearance 78 ml/min; Glucose 119 mg/dl (70-99); Potassium 3.3 mmol/L (3.5-5.1); Sodium 134 mmol/L (135-145); eGFR > 60.00
[2025-03-10] MEDS: D5/0.9% with KCL 40 MEQ 1000 IV (18:24)
[2025-03-10] MEDS: TAMIFLU PO ×2 (20:27→20:37)
[2025-03-10] MEDS: ZANAFLEX 2 MG PO (22:49)
[2025-03-10 23:00] VITALS: BP 135/79
[2025-03-11] MEDS: ZOFRAN 4 MG IV ×2 (01:26→08:04)
[2025-03-11] MEDS: TORADOL 10 MG IV ×4 (01:37→19:28)
[2025-03-11] MEDS: DILAUDID 0.5 MG IV ×3 (05:15→21:37)
[2025-03-11] MEDS: ZOSYN 100 IV ×3 (05:27→17:49)
[2025-03-11] MEDS: D5/0.9% with KCL 40 MEQ 1000 IV ×2 (06:28→18:46)
[2025-03-11 07:20] VITALS: BP 138/69
[2025-03-11] MEDS: NSS (PRESERVATIVE FREE) 10 ML IV (07:57)
[2025-03-11] MEDS: PROTONIX IV 40 MG IV (07:57)
[2025-03-11] MEDS: OLOPATADINE 0.1% OPHTHALMIC SOLUTION 1 DROP OPHTH (08:00)
[2025-03-11 08:33] LABS: Hematocrit 23.1 % (37.0-47.0); Hemoglobin 8.0 g/dL (12.0-16.0); Mean Corp Hgb Conc. 34.6 g/dL (33.0-37.0); Mean Corpuscular Volume 86.8 fL (81.0-99.0); Platelet Count 323 10^3/uL (130-400); Red Cell Dist. Width 13.2 % (11.5-14.5)
--- NOTE | 2025-03-11 08:39 | W.PN.CRS1 ---
Today's Communication / Plan
-
As below
Assessment/Plan
-
64-year-old female with PMH of HLD, history of UTI, osteoporosis, interstitial cystitis who presented with perforated diverticulitis; nonoperative measures were attempted, but the patient did not improve substantially
POD 3 ex lap, Pickett's procedure
AFVSS
WBC 7.5, Hb 8.0 from 9.3, BMP pending
� Continue clears with IVF due to nausea; ileus seems less likely as she is having ostomy function; if any vomiting, would make n.p.o.
�Continue pain control with Tylenol, Toradol, Dilaudid as needed
� Due to oozing of blood from the wound, hold Lovenox tonight; will repeat CBC at noon due to 1 g drop
�Continue home medications
� Continue IV Zosyn for 7-10-day course
� Strict I's/O's
�Appreciate hospitalist
Subjective Data
Procedure
03/08/2025- Batsheva's procedure (sigmoidectomy with colostomy)
Subjective Data
Date of Service: March 11, 2025
Patient states she does not feel well. She is feeling nauseous, but denies vomiting. Tolerating clears yesterday. Not feeling hungry.
Pain controlled. Complaining of bladder pain and cramping, but explains that this is chronic for her, diagnosed with interstitial cystitis.
Having gas and some liquid stool in the ostomy
Objective Data
-
Vital Signs
Temp Pulse Resp BP Pulse Ox
98 F 90 14 135/79 95
03/10/25 23:00 03/10/25 23:00 03/10/25 23:00 03/10/25 23:00 03/10/25 23:00
Intake & Output
03/10/25 03/11/25 03/12/25
06:59 06:59 06:59
Intake Total 1060 / 1060 2550 / 2550
Output Total 1605 / 1605 370 / 370
Balance -545 / -545 2180 / 2180
Intake:
Oral fluids 240 / 240
IV fluids (Total) 960 / 960 1959 / 1959
IV piggybacks 100 / 100 350 / 350
Output:
Liquid stool amount 50 / 50 70 / 70
Colostomy 50 / 50 70 / 70
Drain Output (Total) 150 / 150
Right Lower Abdomen Blair- 150 / 150
Baker
Gastrointestinal tube output ( 450 / 450 150 / 150
Total)
[place] Sump 450 / 450 150 / 150
Urine, [place] 900 / 900
Other:
Number of approximated SMALL 2
amounts of urine
Number of approximated MODERATE 2
amounts of urine
Physical Exam
-
General: No Acute Distress and AOx3
HEENT: Grossly Normal
Abdomen: Soft, Distended (Mildly distended with subtle tympany), Tender (Appropriately tender near midline incision) and Other (LUCIANO-serosanguineous output; ostomy pink, mildly edematous, productive of liquid succus)
Skin: Warm and Dry
Wound: No Skin Erythema and Other (Midline incision closed with intermittent marlys and Telfa beny; clotted blood stuck to a few Telfa beny, which were removed; dressings with some clotted blood as well, which were changed; no active bleeding
from the wound)
[2025-03-11] MEDS: DILAUDID 0.25 MG IV ×2 (09:11→12:22)
[2025-03-11] MEDS: RESTASIS 0.05% OPHTHALMIC EMULSION 1 DROPS BOTH EYES ×2 (09:12→21:31)
[2025-03-11 09:19] LABS: Blood Urea Nitrogen 6 mg/dl (7-17); Calcium 7.2 mg/dl (8.4-10.2); Carbon Dioxide 25 mmol/L (22-30); Chloride 107 mmol/L (98-107); Estimated Creatinine Clearance 78 ml/min; Glucose 114 mg/dl (70-99); Potassium 3.5 mmol/L (3.5-5.1); Sodium 134 mmol/L (135-145); eGFR > 60.00
[2025-03-11 12:19] LABS: Hematocrit 25.4 % (37.0-47.0); Hemoglobin 8.8 g/dL (12.0-16.0)
--- NOTE | 2025-03-11 14:03 | W.PN.HOSP.TC ---
Today's Communication/Plan
-
continue CLD
pain control
Assessment / Plan
Assessment / Plan
Impression:
64-year-old female with history of hyperlipidemia, hypertension, and interstitial cystitis presented with chills, cough, congestion, generalized body aches, headache, and dizziness since Saturday. Tested positive for influenza 03/05 and started
Tamiflu. Reports left lower quadrant pain for 3 days, multiple episodes of loose stool, and one episode of vomiting day of admit. Estimated fever up to 103.1�F. Denies chest pain, shortness of breath, dysuria, or hematuria.
Imaging:
CT abdomen/pelvis shows acute sigmoid diverticulitis with evidence of microperforation (small free air), no abscess.
Patient status post Pickett's procedure
s/P NG tube
NG tube removed.
Patient started on clear liquid diet.
Pain improved.
Hemoglobin stable.
Assessment/plan:
Sigmoid diverticulitis with microperforation s/p Batsheva's procedure
CT abdomen/pelvis shows acute sigmoid diverticulitis with evidence of perforation (small amount of free air). No focal collection or abscess identified. 9 mm common bile duct likely physiologic; recommend correlation with liver function tests (LFTs
including alk phos are normal)
IV Zosyn
s/p OR 03/08: Procedure Performed: Batsheva's procedure (sigmoidectomy with colostomy)
follow up culture results - gram neg bacilli
NPO, NGT
IVF changed to D5LR + 20mEq k
drainage from LUCIANO drain
ice chips OK for comfort
03/10
NG tube clamped
May remove and start clear liquid
Pain control.
03/11
NG tube removed.
Patient started on clear liquid diet.
Pain improved.
Hemoglobin stable.
Acute hypoxic respiratory failure (nocturnal hypoxia)/ Influenza A
CONTINUE Tamiflu through 03/10
Hypokalemia
-repleted, add K to fluids
Hyperlipidemia
Hold Crestor and Zetia
Essential Hypertension
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
Interstitial Cystitis
Continue tizanidine
CODE STATUS: Full code
DVT prophylaxis: Lovenox
Total time spent on today's encounter was 65 minutes which included time spent in counseling the patient/family regarding diagnosis and treatment plan as listed above, goals of care, and symptom management. Case was discussed with nursing staff,
specialists, and care coordinators/case management. All labs and imaging personally reviewed by me. Remainder the time spent in detailed review of previous records, lab data, imaging, and other medical provider documentation.
Anticipated Discharge: > 48 hours
Subjective/Interval History
-
Date of Service: March 11, 2025
Patient seen and examined at bedside, patient still with abdominal pain, but better than yesterday, denies any chest pain still with mild coughing shortness of breath, no nausea or vomiting, current on CLD.
Objective Data
-
Labs:
Laboratory Results
03/11/25 03/11/25
07:09 11:56
WBC 7.5
Hgb 8.0 L 8.8 L
Hct 23.1 L 25.4 L
Plt Count 323
Sodium 134 L
Potassium 3.5
Chloride 107
Carbon Dioxide 25
BUN 6 L
Creatinine 0.5 L
Glucose 114 H
Calcium 7.2 L
Vital Signs:
Vital Signs
Temp Pulse Resp BP Pulse Ox
97.8 F 94 18 138/69 92
03/11/25 07:20 03/11/25 07:20 03/11/25 07:20 03/11/25 07:20 03/11/25 07:20
I&O
03/10/25 03/11/25 03/12/25
06:59 06:59 06:59
Intake Total 1060 / 1060 2550 / 2550
Output Total 1605 / 1605 400 / 400
Balance -545 / -545 2149
Physical Exam
-
General: Well Developed, Well Nourished, No Apparent Distress and Comfortable
HEENT: Normocephalic, Atraumatic, Moist Mucous Membranes, No Ptosis, PERRLA and Nose Appears Normal
Respiratory: Rales and Non Labored Respirations
Cardiac: Regular Rhythm and S1/S2
GI: Tender, Ostomy and Other (LUCIANO drain, marlys in place)
Genito-urinary: No Costovertebral Tender
Musculoskeletal: No Clubbing, No Cyanosis and No Edema
Skin: Warm
Neuro: Awake, Alert, Oriented, AO x 3 and No Motor Deficits
Psych: Calm
[2025-03-11 15:26] VITALS: BP 131/72
[2025-03-11] MEDS: ZANAFLEX 2 MG PO (21:31)
[2025-03-11 23:00] VITALS: BP 126/79
[2025-03-12] MEDS: ZOSYN 100 IV ×4 (00:09→18:40)
[2025-03-12] MEDS: DILAUDID 0.25 MG IV (01:27)
[2025-03-12] MEDS: TORADOL 10 MG IV ×4 (03:13→19:56)
[2025-03-12] MEDS: ZOFRAN 4 MG IV (05:55)
[2025-03-12 07:10] VITALS: BP 125/73
[2025-03-12] MEDS: D5/0.9% with KCL 40 MEQ 1000 IV ×2 (07:42→21:37)
[2025-03-12] MEDS: NSS (PRESERVATIVE FREE) 10 ML IV (07:49)
[2025-03-12] MEDS: PROTONIX IV 40 MG IV (07:49)
[2025-03-12] MEDS: OLOPATADINE 0.1% OPHTHALMIC SOLUTION 1 DROP OPHTH (08:02)
--- NOTE | 2025-03-12 08:51 | W.PN.CRS1 ---
Today's Communication / Plan
-
fulls
await labs
Assessment/Plan
-
64-year-old female with PMH of HLD, history of UTI, osteoporosis, interstitial cystitis who presented with perforated diverticulitis; nonoperative measures were attempted, but the patient did not improve substantially
POD 4 ex lap, Pickett's procedure
AFVSS
Labs pending
� Advance to fulls
�Continue pain control with Tylenol, Toradol, Dilaudid as needed
�Will await labs to decide whether or not to start Lovenox. TEDS/SCDS in place.
�Continue home medications
� Continue IV Zosyn for 7-10-day course
� Strict I's/O's
�Appreciate hospitalist
-OOB with PT/OT
-Maintain LUCIANO drain until discharge
-Appreciate wound RN for stoma teaching
Subjective Data
Procedure
03/08/2025- Batsheva's procedure (sigmoidectomy with colostomy)
Subjective Data
Date of Service: March 12, 2025
Patient states she had a better night but is very tired. Denies worsening pain. Tolerated clears. Had some nausea which resolved. Flatus and stool in colostomy bag.
Objective Data
-
Vital Signs
Temp Pulse Resp BP Pulse Ox
97.8 F 95 18 125/73 93
03/12/25 07:10 03/12/25 07:10 03/12/25 07:10 03/12/25 07:10 03/12/25 07:10
Intake & Output
03/11/25 03/12/25 03/13/25
06:59 06:59 06:59
Intake Total 2550 / 2550 2040 / 2040
Output Total 400 / 400 290 / 290
Balance 2150 / 2150 1750 / 1750
Intake:
Oral fluids 240 / 240 840 / 840
IV fluids (Total) 1959 / 1959 1000 / 1000
IV piggybacks 350 / 350 200 / 200
Output:
Liquid stool amount 70 / 70 150 / 150
Colostomy 70 / 70 150 / 150
Drain Output (Total) 180 / 180 140 / 140
Right Lower Abdomen Blair- 180 / 180 140 / 140
Baker
Gastrointestinal tube output ( 150 / 150
Total)
[place] Sump 150 / 150
Other:
Number of approximated SMALL 2
amounts of urine
Number of approximated MODERATE 2 5
amounts of urine
Physical Exam
-
General: No Acute Distress and AOx3
Abdomen: Soft, Non Distended, Non Tender and Other (LUCIANO drain serosanginous. Colostomy warm and pink with flatus/stool. )
Wound: Dressing in Place (no active bleeding, last wick removed. serous drainage. )
[2025-03-12 09:00] LABS: Hematocrit 25.6 % (37.0-47.0); Hemoglobin 8.8 g/dL (12.0-16.0); Mean Corp Hgb Conc. 34.4 g/dL (33.0-37.0); Mean Corpuscular Volume 87.4 fL (81.0-99.0); Platelet Count 388 10^3/uL (130-400); Red Cell Dist. Width 13.2 % (11.5-14.5)
[2025-03-12 09:17] LABS: Blood Urea Nitrogen < 2 mg/dl (7-17); Calcium 7.8 mg/dl (8.4-10.2); Carbon Dioxide 22 mmol/L (22-30); Chloride 109 mmol/L (98-107); Estimated Creatinine Clearance 78 ml/min; Glucose 113 mg/dl (70-99); Potassium 3.6 mmol/L (3.5-5.1); Sodium 137 mmol/L (135-145); eGFR > 60.00
[2025-03-12] MEDS: RESTASIS 0.05% OPHTHALMIC EMULSION 1 DROPS BOTH EYES ×2 (11:09→21:37)
--- NOTE | 2025-03-12 12:00 | WOUNDNOTE ---
WO RN Note: Patient and patient's instructed colostomy pouch emptying and changing pouch using [place] wafer # [id number], Castillo seal and [place] pouch #[id number]. Ostomy supplies in room. Skin on patient's sacrum and heels area intact. Patient
instructed pressure injury prevention measures. Patient can turn self in bed. Heels off bed with pillow. Air chair cushion given. Next appliance change due Saturday. Suggested patient talk with CM about VN if she hasn't already.
--- NOTE | 2025-03-12 12:55 | W.PN.HOSP.TC ---
Today's Communication/Plan
-
Advanced to full liquid diet
pain control
Assessment / Plan
Assessment / Plan
Impression:
64-year-old female with history of hyperlipidemia, hypertension, and interstitial cystitis presented with chills, cough, congestion, generalized body aches, headache, and dizziness since Saturday. Tested positive for influenza 03/05 and started
Tamiflu. Reports left lower quadrant pain for 3 days, multiple episodes of loose stool, and one episode of vomiting day of admit. Estimated fever up to 103.1�F. Denies chest pain, shortness of breath, dysuria, or hematuria.
Imaging:
CT abdomen/pelvis shows acute sigmoid diverticulitis with evidence of microperforation (small free air), no abscess.
Patient status post Pickett's procedure
s/P NG tube
NG tube removed.
Patient started on clear liquid diet.
Pain improved.
Hemoglobin stable.
03/12
Tolerated clear liquid and started on full liquid
Assessment/plan:
Sigmoid diverticulitis with microperforation s/p Batsheva's procedure
CT abdomen/pelvis shows acute sigmoid diverticulitis with evidence of perforation (small amount of free air). No focal collection or abscess identified. 9 mm common bile duct likely physiologic; recommend correlation with liver function tests (LFTs
including alk phos are normal)
IV Zosyn
s/p OR 03/08: Procedure Performed: Batsheva's procedure (sigmoidectomy with colostomy)
follow up culture results - gram neg bacilli
NPO, NGT
IVF changed to D5LR + 20mEq k
drainage from LUCIANO drain
ice chips OK for comfort
03/10
NG tube clamped
May remove and start clear liquid
Pain control.
03/11
NG tube removed.
Patient started on clear liquid diet.
Pain improved.
Hemoglobin stable.
03/12
03/12
Tolerated clear liquid and started on full liquid
Acute hypoxic respiratory failure (nocturnal hypoxia)/ Influenza A
CONTINUE Tamiflu through 03/10
Hypokalemia
-repleted, add K to fluids
Hyperlipidemia
Hold Crestor and Zetia
Essential Hypertension
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
Interstitial Cystitis
Continue tizanidine
CODE STATUS: Full code
DVT prophylaxis: Lovenox
Total time spent on today's encounter was 65 minutes which included time spent in counseling the patient/family regarding diagnosis and treatment plan as listed above, goals of care, and symptom management. Case was discussed with nursing staff,
specialists, and care coordinators/case management. All labs and imaging personally reviewed by me. Remainder the time spent in detailed review of previous records, lab data, imaging, and other medical provider documentation.
Anticipated Discharge: 24 - 48 hours
Subjective/Interval History
-
Date of Service: March 12, 2025
Patient seen and examined at bedside, denies any chest pain or shortness of breath, improved abdominal pain, started full liquid
Objective Data
-
Labs:
Laboratory Results
03/12/25
07:12
WBC 7.7
Hgb 8.8 L
Hct 25.6 L
Plt Count 388 D
Sodium 137
Potassium 3.6
Chloride 109 H
Carbon Dioxide 22
BUN < 2 L
Creatinine 0.5 L
Glucose 113 H
Calcium 7.8 L
Vital Signs:
Vital Signs
Temp Pulse Resp BP Pulse Ox
97.8 F 95 18 125/73 93
03/12/25 07:10 03/12/25 07:10 03/12/25 07:10 03/12/25 07:10 03/12/25 07:10
I&O
03/11/25 03/12/25 03/13/25
06:59 06:59 06:59
Intake Total 2550 / 2550 2040 / 2040
Output Total 400 / 400 290 / 290
Balance 2149
Physical Exam
-
General: Well Developed, Well Nourished, No Apparent Distress and Comfortable
HEENT: Normocephalic, Atraumatic, Moist Mucous Membranes, No Ptosis, PERRLA and Nose Appears Normal
Respiratory: Rales and Non Labored Respirations
Cardiac: Regular Rhythm and S1/S2
GI: Tender, Ostomy and Other (LUCIANO drain, marlys in place)
Genito-urinary: No Costovertebral Tender
Musculoskeletal: No Clubbing, No Cyanosis and No Edema
Skin: Warm
Neuro: Awake, Alert, Oriented, AO x 3 and No Motor Deficits
Psych: Calm
[2025-03-12] MEDS: DILAUDID 0.5 MG IV ×2 (13:07→21:52)
[2025-03-12 15:20] VITALS: BP 157/89
--- NOTE | 2025-03-12 15:21 | CM ---
Chart reviewed.
Therapy determining SNF vs home PT. Discussed w/ patient at bedside. Patient stated she doesn't want to do inpatient rehab. 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 Patient aware that
therapy has concerns w/ the stairs in the home but is able to go up and down the stairs on her rear end. Patient stated she stays on the first floor for majority of the day and has what she needs, such as a commode, she stated she doesn't go up and
down the steps all day so the stairs are not a concern for her. Patient stated she has support from her and her two children who will be home for the next 5 weeks.
Patient agreeable to [facility] at discharge, discussed w/ liaison
Plan: Home w/ [facility]
--- NOTE | 2025-03-12 18:24 | PTCARENOTE ---
Assumed care of pt from previous nurse. Pt provided pain medication for pain to abdomen with positive results. Pt iv infusing without issue. LUCIANO drain with smaill amount of serosanguineous output. pt colostomy drain stoma budded, with output. Pt call
alvarez is within reach, pt rings adilene. will cont to monitor.
[2025-03-12] MEDS: LOVENOX 40 MG SC (18:41)
[2025-03-12] MEDS: ZANAFLEX 2 MG PO (21:37)
[2025-03-12 23:46] VITALS: BP 147/85
[2025-03-13] MEDS: ZOSYN 100 IV ×5 (00:19→23:08)
[2025-03-13] MEDS: TORADOL 10 MG IV ×3 (02:33→13:43)
[2025-03-13] MEDS: DILAUDID 0.5 MG IV (05:37)
[2025-03-13 06:58] LABS: Hematocrit 22.5 % (37.0-47.0); Hemoglobin 7.5 g/dL (12.0-16.0); Mean Corp Hgb Conc. 33.3 g/dL (33.0-37.0); Mean Corpuscular Volume 87.2 fL (81.0-99.0); Platelet Count 410 10^3/uL (130-400); Red Cell Dist. Width 13.2 % (11.5-14.5)
[2025-03-13 07:29] LABS: Blood Urea Nitrogen 2 mg/dl (7-17); Calcium 7.8 mg/dl (8.4-10.2); Carbon Dioxide 24 mmol/L (22-30); Chloride 110 mmol/L (98-107); Estimated Creatinine Clearance 78 ml/min; Glucose 115 mg/dl (70-99); Potassium 3.9 mmol/L (3.5-5.1); Sodium 137 mmol/L (135-145); eGFR > 60.00
[2025-03-13 07:30] VITALS: BP 135/79
[2025-03-13] MEDS: PROTONIX IV 40 MG IV (08:44)
[2025-03-13] MEDS: NSS (PRESERVATIVE FREE) 10 ML IV (08:44)
[2025-03-13] MEDS: OLOPATADINE 0.1% OPHTHALMIC SOLUTION 1 DROP OPHTH (08:45)
--- NOTE | 2025-03-13 09:49 | W.PN.GS2 ---
Addendum entered and electronically signed by Jj James MD 03/13/25 10:36:
Patient seen and examined with surgical [employer].
Patient advises that she feels as though she is turning the corner but still is fatigued.
Tolerating dietary advancement and ostomy functional.
AFVSS
NAD AAO x 3
ABD: Soft, not significantly distended, midline incision dressing taken down and there is no active oozing or bleeding.
Left-sided colostomy pink with air and stool
Right sided LUCIANO with light mostly serous fluid. Nonpurulent, not bloody.
A/P: Advance to low residue diet
Repeat CBC at noon given continued drift this is likely equilibration or potentially dilutional however if hemoglobin remains in the 7 range would transfuse 1 unit as patient appears to be symptomatic from her anemia
Probable DC from surgical standpoint in 24 hours
LUCIANO will be removed prior to discharge as well
Original Note:
Today's Communication / Plan
-
Advance diet
Repeat h/h
Assessment / Plan
-
64 yo presenting with perforated diverticulitis without improvement with nonoperative measures now POD #5 ex lap/jhony's procedure
AFVSS
Acute blood loss anemia present secondary to expected intraop losses with subsequent oozing form incision (now resolved)
H/H trending down today
No leukocytosis
Renal function stable
Tolerating diet with good stoma function
Plan:
Advance to low residue diet
Repeat h/h at noon with type and screen, may need to transfuse pending results.
C/W LUCIANO, anticipate removal prior to d/c
C/W IV zosyn
C/W tylenol/Toradol. Will add oxycodone prn. Dilaudid for breakthrough
Stoma team evaluated for ostomy teaching/CM following for VNA arrangements
Lovenox/SCDs for VTE ppx
Anticipate will be ready for d/c tomorrow vs saturday pending PO tolerance, labs and pain control
Subjective Data
-
Date of Service: March 13, 2025
Pt seen and examined at bedside with Dr. James. Denies n/v. tolerating fulls but without much appetite. Trying to back down on narcotics. Feeling quite fatigued.
Objective Data
-
Intake and Output
03/12/25 03/13/25 03/14/25
06:59 06:59 06:59
Intake Total 2040 / 2040 2280 / 2280
Output Total 290 / 290 70 / 70
Balance 1750 / 1750 2210 / 2210
Intake:
Oral fluids 840 / 840 2280 / 2280
IV fluids (Total) 1000 / 1000
IV piggybacks 200 / 200
Output:
Liquid stool amount 150 / 150
Colostomy 150 / 150
Drain Output (Total) 140 / 140 70 / 70
Right Lower Abdomen Blair- 140 / 140 70 / 70
Baker
Other:
Number of approximated SMALL 3
amounts of urine
Number of approximated MODERATE 5 4
amounts of urine
Number of approximated LARGE 1
amounts of urine
Vital Signs
Temp Pulse Resp BP Pulse Ox
97.9 F 85 18 135/79 100
03/13/25 07:30 03/13/25 07:30 03/13/25 07:30 03/13/25 07:30 03/13/25 07:30
Lab Results
03/13/25 05:56
Calcium 7.8 mg/dl (8.4-10.2) L 03/13/25 05:56
Magnesium 3.0 mg/dl (1.6-2.3) H 03/09/25 08:07
Total Bilirubin 0.5 mg/dl (0.2-1.3) 03/09/25 08:07
AST 45 U/L (14-36) H 03/09/25 08:07
ALT 27 U/L (0-35) 03/09/25 08:07
Alkaline Phosphatase 54 U/L (38-126) 03/09/25 08:07
Total Protein 4.8 g/dl (6.3-8.2) L 03/09/25 08:07
Albumin 2.6 g/dl (3.5-5.0) L 03/09/25 08:07
Physical Exam
-
NAD, Pale
ABD soft, nd, expected ttp to incision. Stoma pink/viable with stool/flatus in appliance
Incsion with intact marlys, no active bleeding
LUCIANO with SSF
[2025-03-13] MEDS: RESTASIS 0.05% OPHTHALMIC EMULSION 1 DROPS BOTH EYES ×2 (10:32→21:00)
[2025-03-13] MEDS: ROXICODONE 5 MG PO ×3 (11:49→22:56)
--- NOTE | 2025-03-13 11:51 | W.PN.HOSP.TC ---
Today's Communication/Plan
-
see plan
Assessment / Plan
Assessment / Plan
Admission summary: 64-year-old female with history of hyperlipidemia, hypertension, and interstitial cystitis presented with chills, cough, congestion, generalized body aches, headache, and dizziness since Saturday. Tested positive for influenza 03/05
and started Tamiflu. Reports left lower quadrant pain for 3 days, multiple episodes of loose stool, and one episode of vomiting day of admit. Estimated fever up to 103.1�F. Denies chest pain, shortness of breath, dysuria, or hematuria.
Gen: NAD, AAOx3.
Eyes: EOMI, PERRLA, no scleral icterus.
Neck: supple.
CV: RRR, +S1/S2, no m/r/g.
Resp: CTAB, no rales, wheezes, or rhonchi.
Abd: +BS, soft, mild tenderness to light palpation, ND
Skin: No rashes.
Neuro: CN 2-12 intact, non-focal.
Psych: Normal mood and affect.
CT A/P: Acute sigmoid diverticulitis with evidence of microperforation (small free air), no abscess.
Acute sigmoid diverticulitis with microperforation:
-s/p Batsheva's procedure (sigmoidectomy with colostomy) on 03/08
-NGT removed
-currently advance to low residue diet, tolerating
-anemia is likely a combination of acute blood loss anemia due to surgery and hemodilution, currently stable at 8.8
Acute hypoxemic respiratory failure due to acute influenza A infection:
-completed a course of Tamiflu on 03/10
-now saturating well on room air
Other problems:
Hypokalemia, resolved
Hyponatremia, resolved
HLD: resume statin
Essential HTN: resume Losartan
Interstitial cystitis: cont Zanaflex
FULL/Lovenox
Anticipated Discharge: 24 - 48 hours
Subjective/Interval History
-
Date of Service: March 13, 2025
States she has some abdominal cramping.
Objective Data
-
Labs:
Laboratory Results
03/13/25 03/13/25
05:56 12:00
WBC 6.4
Hgb 7.5 L Pending
Hct 22.5 L Pending
Plt Count 410 H
Sodium 137
Potassium 3.9
Chloride 110 H
Carbon Dioxide 24
BUN 2 L
Creatinine 0.5 L
Glucose 115 H
Calcium 7.8 L
Vital Signs:
Vital Signs
Temp Pulse Resp BP Pulse Ox
97.9 F 85 18 135/79 100
03/13/25 07:30 03/13/25 07:30 03/13/25 07:30 03/13/25 07:30 03/13/25 08:00
I&O
03/12/25 03/13/25 03/14/25
06:59 06:59 06:59
Intake Total 2039 / 2279
Output Total 290 / 290 70 / 70
Balance 1750 / 1750 2209 / 221
[2025-03-13 12:35] LABS: Hematocrit 26.2 % (37.0-47.0); Hemoglobin 8.8 g/dL (12.0-16.0)
[2025-03-13 15:56] VITALS: BP 133/73
[2025-03-13] MEDS: CRESTOR 20 MG PO (17:26)
[2025-03-13] MEDS: LOVENOX SC (17:33)
[2025-03-13] MEDS: ZANAFLEX 2 MG PO (21:00)
[2025-03-13] MEDS: ZETIA 10 MG PO (21:00)
[2025-03-13] MEDS: ROBITUSSIN DM 10 ML PO (23:08)
[2025-03-13 23:15] VITALS: BP 146/80
[2025-03-14] MEDS: ROXICODONE 5 MG PO (03:41)
[2025-03-14] MEDS: ZOSYN 100 IV (05:08)
[2025-03-14 07:22] LABS: Hematocrit 25.4 % (37.0-47.0); Hemoglobin 8.7 g/dL (12.0-16.0); Mean Corp Hgb Conc. 34.3 g/dL (33.0-37.0); Mean Corpuscular Volume 87.3 fL (81.0-99.0); Platelet Count 467 10^3/uL (130-400); Red Cell Dist. Width 13.1 % (11.5-14.5)
[2025-03-14 07:53] VITALS: BP 140/83
[2025-03-14] MEDS: COZAAR 25 MG PO (08:03)
[2025-03-14] MEDS: PROTONIX IV 40 MG IV (08:04)
[2025-03-14] MEDS: NSS (PRESERVATIVE FREE) 10 ML IV (08:04)
[2025-03-14] MEDS: OLOPATADINE 0.1% OPHTHALMIC SOLUTION 1 DROP OPHTH (08:04)
[2025-03-14 08:11] LABS: Blood Urea Nitrogen 4 mg/dl (7-17); Calcium 8.2 mg/dl (8.4-10.2); Carbon Dioxide 24 mmol/L (22-30); Chloride 106 mmol/L (98-107); Estimated Creatinine Clearance 78 ml/min; Glucose 92 mg/dl (70-99); Potassium 3.5 mmol/L (3.5-5.1); Sodium 136 mmol/L (135-145); eGFR > 60.00
[2025-03-14] MEDS: ANESTHETIC LOZENGE 1 LOZENGE PO (08:12)
[2025-03-14] MEDS: TYLENOL 1000 MG PO (08:12)
[2025-03-14] MEDS: ROBITUSSIN DM 10 ML PO (08:12)
--- NOTE | 2025-03-14 08:20 | W.PN.GS2 ---
Addendum entered and electronically signed by Jj James MD 03/14/25 09:14:
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 Agree with documented progress note.
Patient continues to improve with her postoperative recovery and tolerating p.o. intake. Some challenges with managing her ostomy appliance but getting by. No new abdominal pain. No nausea or vomiting.
AFVSS
NAD AAO x 3
ABD: Soft, nondistended, minimal incisional tenderness. Midline laparotomy incision with marlys. No active bleeding or oozing. Skin edges generally approximated. No erythema, no drainage.
Left sided stoma with pink mucosa and air/liquid stool in appliance.
Right sided LUCIANO with scant serous fluid
Hemoglobin stabilized at 8.7. Yesterday a.m. was probably dilutional.
A/P: Stable for discharge from a surgical standpoint with outpatient follow-up with colorectal surgery
Discharged with 4-day p.o. coverage with Levaquin to complete 10-day postoperative course based on culture and sensitivity data
Original Note:
Today's Communication / Plan
-
dispo planning
Assessment / Plan
-
64 yo presenting with perforated diverticulitis without improvement with nonoperative measures now POD #6 ex lap/jhony's procedure
AFVSS
H/H stable
No leukocytosis
Renal function stable
Tolerating diet with good stoma function
OR cx with Pseudomonas, ecoli, strep
Plan:
Continue low residue diet
LUCIANO removed at bedside
C/W IV zosyn, would complete a 10 day post op course. Recommend transition to oral Levaquin on D/C based on cx sensitivities
Tylenol, Ibuprofen, oxycodone prn
Stoma team evaluated for ostomy teaching/CM following for VNA arrangements
Lovenox/SCDs for VTE ppx
Ok for discharge from surgical standpoint on 4 days of PO Levaquin. D/C insturctions updated.
Subjective Data
-
Date of Service: March 14, 2025
Pt seen and examined at bedside with Dr. James. Denies n/v. Tolerating LRD. Passing flatus/stools. A lot of stool outputs overnight with leaking from ostomy. Pain well managed with oral oxy.
Objective Data
-
Intake and Output
03/13/25 03/14/25 03/15/25
06:59 06:59 06:59
Intake Total 2280 / 2280 1800 / 1800
Output Total 1158 / 1158
Balance 2210 / 2210 642 / 642
Intake:
Oral fluids 2280 / 2280 1800 / 1800
Output:
Liquid stool amount 300 / 300
Colostomy 300 / 300
Drain Output (Total) 58
Right Lower Abdomen Blair-
Baker
Urine, Voided 800 / 800
Other:
Number of approximated SMALL 3
amounts of urine
Number of approximated MODERATE 4 3
amounts of urine
Number of approximated LARGE 1 2
amounts of urine
Vital Signs
Temp Pulse Resp BP Pulse Ox
97.9 F 92 18 140/83 94
03/14/25 07:53 03/14/25 08:03 03/14/25 07:53 03/14/25 08:03 03/14/25 07:53
Lab Results
03/14/25 07:05
03/14/25 07:05
Calcium 8.2 mg/dl (8.4-10.2) L 03/14/25 07:05
Magnesium 3.0 mg/dl (1.6-2.3) H 03/09/25 08:07
Total Bilirubin 0.5 mg/dl (0.2-1.3) 03/09/25 08:07
AST 45 U/L (14-36) H 03/09/25 08:07
ALT 27 U/L (0-35) 03/09/25 08:07
Alkaline Phosphatase 54 U/L (38-126) 03/09/25 08:07
Total Protein 4.8 g/dl (6.3-8.2) L 03/09/25 08:07
Albumin 2.6 g/dl (3.5-5.0) L 03/09/25 08:07
Physical Exam
-
NAD, Pale
ABD soft, nd, expected ttp to incision. Stoma pink/viable with stool/flatus in appliance
Incsion with intact marlys, no active bleeding
LUCIANO with SSF (removed)
--- NOTE | 2025-03-14 08:29 | W.PN.HOSP.TC ---
Today's Communication/Plan
-
d/c
Assessment / Plan
Assessment / Plan
Admission summary: 64-year-old female with history of hyperlipidemia, hypertension, and interstitial cystitis presented with chills, cough, congestion, generalized body aches, headache, and dizziness since Saturday. Tested positive for influenza 03/05
and started Tamiflu. Reports left lower quadrant pain for 3 days, multiple episodes of loose stool, and one episode of vomiting day of admit. Estimated fever up to 103.1�F. Denies chest pain, shortness of breath, dysuria, or hematuria.
Gen: NAD, AAOx3.
Eyes: EOMI, PERRLA, no scleral icterus.
Neck: supple.
CV: remains RRR, +S1/S2, no m/r/g.
Resp: CTAB anteriorly, no rales, wheezes, or rhonchi.
Abd: +BS, soft, nontender to light palpation, ND
Skin: No rashes.
Neuro: CN 2-12 intact, non-focal.
Psych: Normal mood and affect.
CT A/P: Acute sigmoid diverticulitis with evidence of microperforation (small free air), no abscess.
Acute sigmoid diverticulitis with microperforation:
-s/p Batsheva's procedure (sigmoidectomy with colostomy) on 03/08
-NGT removed
-currently advanced to low residue diet, tolerating
-anemia is likely a combination of acute blood loss anemia due to surgery and hemodilution, currently stable at 8.7
-medically cleared for d/c by surgery
Acute hypoxemic respiratory failure due to acute influenza A infection:
-completed a course of Tamiflu on 03/10
-now saturating well on room air
Other problems:
Hypokalemia, resolved
Hyponatremia, resolved
HLD: cont statin
Essential HTN: cont Losartan
Interstitial cystitis: cont Zanaflex
FULL/Lovenox
Total time spent on d/c = 31 min. This included today's physical exam, progress note, review of laboratory and diagnostic data, preparation of discharge documents and prescriptions, and discussions about the pt's hospital course and discharge plan
with the patient and other medical record transcriber involved in the patient's care.
Anticipated Discharge: Today
Subjective/Interval History
-
Date of Service: March 14, 2025
No new complaints.
Objective Data
-
Labs:
Laboratory Results
03/14/25
07:05
WBC 9.7
Hgb 8.7 L
Hct 25.4 L
Plt Count 467 H
Sodium 136
Potassium 3.5
Chloride 106
Carbon Dioxide 24
BUN 4 L
Creatinine 0.5 L
Glucose 92
Calcium 8.2 L
Vital Signs:
Vital Signs
Temp Pulse Resp BP Pulse Ox
97.9 F 92 18 140/83 94
03/14/25 07:53 03/14/25 08:03 03/14/25 07:53 03/14/25 08:03 03/14/25 07:53
I&O
03/13/25 03/14/25 03/15/25
06:59 06:59 06:59
Intake Total 2280 / 2280 1800 / 1800
Output Total 70 / 70 1158 / 1158
Balance 2210 / 2210 642 / 642
[2025-03-14] MEDS: LEVAQUIN 500 MG PO (09:59)
[2025-03-14] MEDS: RESTASIS 0.05% OPHTHALMIC EMULSION 1 DROPS BOTH EYES (10:02)
--- NOTE | 2025-03-14 10:50 | CM ---
Patient is for discharge to home today with [facility].
Plan; Home with [facility]
[2025-03-14 11:00] VITALS: BP 131/76
--- NOTE | 2025-03-14 13:46 | W.DCSUMMARY ---
Discharge Summary
Discharge Data
Date of Admission: 03/05/25
Date of Discharge: 03/14/25
-
Pending Results: No
Hospital Course
Primary diagnoses:
Acute sigmoid diverticulitis with microperforation s/p Batsheva's procedure (sigmoidectomy with colostomy) on 03/08/25
Secondary diagnoses:
Anemia which was likely a combination of acute blood loss anemia due to surgery and hemodilution
Hypokalemia
Hyponatremia
Hyperlipidemia
Essential hypertension
Interstitial cystitis
Consults:
Colorectal surgery
Imaging:
CXR 03/05: Pneumoperitoneum. Bibasilar atelectasis.
CT A/P 03/05: Acute sigmoid diverticulitis with evidence of microperforation (small free air), no abscess.
64-year-old female who presented with multiple chief complaints including cough, congestion, body aches as well as 3 days of left lower quadrant abdominal pain as outlined in the H&P done on admission. Hospital course per problem list:
Acute sigmoid diverticulitis with microperforation: Imaging above. Patient was made n.p.o. and placed on IV Zosyn. She was supported with IV fluids. She was seen in consultation by colorectal surgery and underwent Batsheva's procedure
(sigmoidectomy with colostomy) on 03/08. Postoperatively she had an NG tube that was removed. Her diet was slowly and progressively advanced and she was tolerating a low residue diet at the time of discharge. She had anemia which was likely a
combination of acute blood loss anemia due to surgery and hemodilution. Hemoglobin is stable at the time of discharge and she was medically cleared for discharge by surgery.
Acute hypoxemic respiratory failure due to acute influenza A infection: Patient required supplemental oxygen up to 5L NC O2. She completed a course of Tamiflu on 03/10. Her oxygen was weaned off and she was saturating well on room air at the time
of discharge.
Discharge Plan
-
Patient Disposition: Home (Routine Discharge)
Discharge Diagnosis/Procedures: Perforated diverticulitis
Diet: As tolerated and Low Fiber
Activity: No strenuous activity
Additional Activity: No lifting over 10lbs (gallon of milk)
Bathing Restrictions: OK to Shower
Wound Care: Cover midline incision with gauze and paper tape. Change daily and as needed. [place] will be removed 2-3 weeks from your surgery date
Activity Restrictions/Additional Instructions:
Colostomy supplies: [place] wafer # [id number], [place] seal and Ravinder pouch #[id number]. Change 2 times a week and as needed for leakage. If leakage becomes a problem, try Ravinder cut to fit soft convex wafer # [id number].
Call supply company (list in folder provided) for monthly Ostomy supplies after discharge (ask VN to order supplies while on service).
Follow up with surgeon.
Call [facility] RN nurse for ostomy pouching concerns or leakage problems [phone] or [phone] or [phone].
Referrals:
Basil Rodriguez MD [Active, ColoRectal] - in two weeks
Angelita Mcconnell MD [Family Provider, Internal Medicine] - in less than 1 week
Additional Discharge Medication Instructions: Tylenol or Ibuprofen as needed for pain. Maximum dose of Tylenol is 4,000mg in 24 hours. Maximum dose of Ibuprofen is 3,200mg in 24 hours.
Prescriptions:
New
levofloxacin 500 mg tablet
500 mg PO DAILY Qty: 4 0RF
oxycodone 5 mg tablet
5 mg PO Q4HPRN PRN (Reason: breakthrough/severe pain) Qty: 20 0RF
Continued
tizanidine 2 mg Tablet
2 mg PO HS
famotidine [Pepcid AC] 10 mg Tablet
10 mg PO DAILYPRN PRN (Reason: GERD)
ibuprofen [Motrin IB] 200 mg Capsule
400 mg PO Q6HPRN PRN (Reason: mild pain)
Premarin 0.625 mg/gram Cream
1 applic VAGINAL TUFR
cyclosporine [Restasis] 0.05 % Dropperette
1 drp BOTH EYES Q12H
clonazepam 0.25 mg Tablet,Disintegrating
0.5 mg PO DAILYPRN PRN (Reason: anxiety)
rosuvastatin [Crestor] 20 mg Tablet
20 mg PO QPM
olopatadine 0.2 % Drops
1 drp BOTH EYES DAILY
calcium carbonate-vitamin D3 [Calcium 500 + D] 500 mg-10 mcg (400 unit) Tablet
1 tab PO DAILY
dextromethorphan-guaifenesin 10-100 mg/5 mL Syrup
10 ml PO Q12H
losartan 25 mg Tablet
25 mg PO DAILY
ezetimibe [Zetia] 10 mg Tablet
10 mg PO HS
Discontinued
oseltamivir [Tamiflu] 75 mg Capsule
75 mg PO BID
Discharge Orders:
Discharge Patient (As Directed); Ordered 03/14/25
Ordered By: Andres Yoon
Discharge Date and Time
Discharge Date/Time: 03/14/25 12:45
Print Language: TURKISH
== END 2025-03-14 12:45 | disposition home or self-care (01) | DRG 329 ==
LOC: 4 WEST ACU 20:30
PROVIDERS: Emergency Medicine; General Practice; Physician Assistant; Registered Nurse; Student in an Organized Health Care Education/Training Program; Surgery; ADMITTING PHYSICIAN Hospitalist; ATTENDING PHYSICIAN Internal Medicine; EMERGENCY PHYSICIAN Emergency Medicine; FAMILY PHYSICIAN Student in an Organized Health Care Education/Training Program; OTHER PHYSICIAN Surgery
PROC: 0DBN0ZZ Excision of Sigmoid Colon, Open Approach (ICD-10-PCS; 2025-03-08)
PROC: 0D1N0Z4 Bypass Sigmoid Colon to Cutaneous, Open Approach (ICD-10-PCS; 2025-03-08)
PROC: 3E0M05Z Introduction of Adhesion Barrier into Peritoneal Cavity, Open Approach (ICD-10-PCS; 2025-03-08)
DX: K57.20 Diverticulitis of large intestine with perforation and abscess without bleeding (principal); J96.01 Acute respiratory failure with hypoxia; E87.1 Hypo-osmolality and hyponatremia; D62 Acute posthemorrhagic anemia; J10.1 Influenza due to other identified influenza virus with other respiratory manifestations; J10.2 Influenza due to other identified influenza virus with gastrointestinal manifestations; I10 Essential (primary) hypertension; E78.00 Pure hypercholesterolemia, unspecified; N30.10 Interstitial cystitis (chronic) without hematuria; R68.89 Other general symptoms and signs; F41.9 Anxiety disorder, unspecified; K31.7 Polyp of stomach and duodenum; D72.819 Decreased white blood cell count, unspecified; R74.01 Elevation of levels of liver transaminase levels; M81.0 Age-related osteoporosis without current pathological fracture; E87.6 Hypokalemia; Z98.1 Arthrodesis status; Z91.0120 Allergy to eggs, unspecified
CPT/HCPCS: 71046; 74177; 80048; 80053; 83690; 83735; 84132; 85014; 85018; 85025; 85027; 85610; 85730; 86140; 86850; 86900; 86901; 87040; 87045; 87046; 87070; 87075; 87077; 87186; 87205; 87427; 87502; 88307; 93005; 94640; 96361; 96374; 96375; 97116; 97162; 97167; 97530; 99284; J1335; Q9967